=== PATIENT | female | born 1980 | race Caucasian/White ===

== ENCOUNTER 2018-05-15 11:53 | Emergency (ER) | payer MEDICAID, SELFPAY ==
[2018-05-15 12:14] VITALS: BP 124/76; PULSE 78; RESP 16; TEMP 36.7; O2SAT 100
--- NOTE | 2018-05-15 12:25 | W.ED.GENAD ---
Discharge Plan Disposition Patient Disposition: HOME Condition: Stable Discharge Details Chief Complaint: RespSymp Clinical Impression: Upper respiratory infection, viral Reason For Visit: cough sorethroat Primary Care Provider: Norman Davidson ED Provider: Ahmet Loyola Home Meds and New Rx's Prescriptions: New Robitussin Cough-Chest Giancarlo DM 5-100 mg/5 mL liquid 10 ml PO Q6H PRN (Reason: cough) Qty: 118 RF: 0 benzonatate [Tessalon Perles] 100 mg capsule 100 mg PO TID PRN (Reason: cough) Qty: 20 RF: 0 Continued ibuprofen 600 MG tablet 600 mg PO QID PRN (Reason: Pain) Qty: 20 RF: 0 Discharge Instructions Instructions: Upper Respiratory Infection (ED) Additional Instructions: Albuterol inhaler, as needed during times of illness for cough or wheezing. If using more than every 4 hours please seek reevaluation. Continue efforts to decrease tobacco use. May use Robitussin-DM for decongestion and to aid with coughing at bedtime. May use Tessalon during the daytime for cough. Follow-up with regular doctor if not improving in 3-5 days time. 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 She presents with cough and congestion over 2 days time. She has normal vital signs, is well-appearing, oxygenating normally on room air. Differential diagnosis includes upper respiratory illness due to viral syndrome, must exclude influenza. Patient underwent rapid influenza screen which was negative. Consistent with viral URI, will treat with an inhaler for mild bronchospasm and paroxysms of cough, decongestant, and antitussive. She understands homecare as well as follow-up and return precautions. 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 HPI General Mode of arrival: ambulatory. Date/Time Provider Initiated Documentation: 05/15/18 12:09. Limitations to Documentation: no limitations. Information obtained by: patient. History of Present Illness 37 year old F presents to the emergency department with the chief complaint of Cough, fever, congestion. 2 days., described as moderate, Quality is described as aching, and is localized to the chest. Patient reports no radiation. Patient started experiencing this day(s) and it has been constant. No relieving factors improve symptom(s), No exacerbating factors reported . Patient notes fever/chills and malaise. Patient did receive the following treatments prior to arrival, none Related Data Home Medications Medication Instructions Recorded Confirmed ibuprofen 600 mg PO QID PRN #20 tablet 02/28/17/ benzonatate [Tessalon Perles] 100 mg PO TID PRN #20 cap 05/15/18 dextromethorphan-guaifenesin 10 ml PO Q6H PRN #118 ml 05/15/18 [Robitussin Cough-Chest Giancarlo DM] Previous Rx's Medication Instructions Recorded ibuprofen 600 mg PO QID PRN #20 tablet 02/28/17 benzonatate [Tessalon Perles] 100 mg PO TID PRN #20 cap 05/15/18 dextromethorphan-guaifenesin 10 ml PO Q6H PRN #118 ml 05/15/18 [Robitussin Cough-Chest Giancarlo DM] Allergies Allergy/AdvReac Type Severity Reaction Status Date / Time codeine Allergy Intermediate Facial Unverified 05/15/18 12:17 swelling General Stated Complaint: RespSymp ИРИНА: 4 Review of Systems Review of Systems 8 systems reviewed and otherwise neg PFSH Social History Smoking and Tabacco status: Current every day Exam Narrative Exam Narrative: GEN: awake, alert, oriented 3. Pleasant, well groomed, interactive. HEAD: Normocephalic, atraumatic ENT: Mucous membranes moist, oropharynx unremarkable, External ear exam unremarkable EYES: PERRL, EOMI NECK: Full ROM, no JACK, no menigismus CHEST/RESP: Nontender, clear to auscultation bilateral, cough noted CARDIOVASCULAR: RRR, no murmur, rub chito. 2+ Rad pulse bilateral ABDOMEN: Soft, nontender, no mass. +Bowel sounds EXT: Full ROM, no edema, no rash Neuro: Grossly normal neurologic exam, conversant, interactive. Psych: Speech fluent, thoughts congruent, affect normal Course Vital Signs Temperature 36.7 C 05/15/18 12:14 Pulse 78 05/15/18 12:14 Respiratory Rate 16 05/15/18 12:14 Blood Pressure 124/76 05/15/18 12:14 Pulse Oximetry 100 05/15/18 12:14 Temperature 36.7 C 05/15/18 12:14 Pulse 78 05/15/18 12:14 Respiratory Rate 16 05/15/18 12:14 Respiratory Effort 05/15/18 12:17 Blood Pressure 124/76 05/15/18 12:14 Pulse Oximetry 100 05/15/18 12:14 Oxygen Delivery Method Room Air 05/15/18 12:14 Oxygen Flow Rate 0 05/15/18 12:14
--- NOTE | 2018-05-15 12:28 | ED.GENADUL_ITS ---
Discharge Plan Disposition Patient Disposition: HOME Condition: Stable Discharge Details Chief Complaint: RespSymp Clinical Impression: Upper respiratory infection, viral Reason For Visit: cough sorethroat Primary Care Provider: Norman Davidson ED Provider: Ahmet Loyola Home Meds and New Rx's Prescriptions: New Robitussin Cough-Chest Giancarlo DM 5-100 mg/5 mL liquid 10 ml PO Q6H PRN (Reason: cough) Qty: 118 RF: 0 benzonatate [Tessalon Perles] 100 mg capsule 100 mg PO TID PRN (Reason: cough) Qty: 20 RF: 0 Continued ibuprofen 600 MG tablet 600 mg PO QID PRN (Reason: Pain) Qty: 20 RF: 0 Discharge Instructions Instructions: Upper Respiratory Infection (ED) Additional Instructions: Albuterol inhaler, as needed during times of illness for cough or wheezing. If using more than every 4 hours please seek reevaluation. Continue efforts to decrease tobacco use. May use Robitussin-DM for decongestion and to aid with coughing at bedtime. May use Tessalon during the daytime for cough. Follow-up with regular doctor if not improving in 3-5 days time. 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 She presents with cough and congestion over 2 days time. She has normal vital signs, is well- appearing, oxygenating normally on room air. Differential diagnosis includes upper respiratory illness due to viral syndrome, must exclude influenza. Patient underwent rapid influenza screen which was negative. Consistent with viral URI, will treat with an inhaler for mild bronchospasm and paroxysms of cough, decongestant, and antitussive. She understands homecare as well as follow-up and return precautions. 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 HPI General Mode of arrival: ambulatory . Date/Time Provider Initiated Documentation: 05/15/18 12:09 . Limitations to Documentation: no limitations . Information obtained by: patient . History of Present Illness 37 year old F presents to the emergency department with the chief complaint of Cough, fever, congestion. 2 days., described as moderate, Quality is described as aching, and is localized to the chest. Patient reports no radiation. Patient started experiencing this day(s) and it has been constant. No relieving factors improve symptom(s), No exacerbating factors reported . Patient notes fever/chills and malaise. Patient did receive the following treatments prior to arrival, none Related Data Home Medications Medication Instructions Recorded Confirmed ibuprofen 600 mg PO QID PRN #20 tablet 02/28/17/ benzonatate [Tessalon Perles] 100 mg PO TID PRN #20 cap 05/15/18 dextromethorphan-guaifenesin 10 ml PO Q6H PRN #118 ml 05/15/18 [Robitussin Cough-Chest Giancarlo DM] Previous Rx's Medication Instructions Recorded ibuprofen 600 mg PO QID PRN #20 tablet 02/28/17 benzonatate [Tessalon Perles] 100 mg PO TID PRN #20 cap 05/15/18 dextromethorphan-guaifenesin 10 ml PO Q6H PRN #118 ml 05/15/18 [Robitussin Cough-Chest Giancarlo DM] Allergies Allergy/AdvReac Type Severity Reaction Status Date / Time codeine Allergy Intermediate Facial Unverified 05/15/18 12:17 swelling General Stated Complaint: RespSymp ИРИНА: 4 Review of Systems Review of Systems 8 systems reviewed and otherwise neg PFSH Social History Smoking and Tabacco status: Current every day Exam Narrative Exam Narrative: GEN: awake, alert, oriented 3. Pleasant, well groomed, interact jakub. HEAD: Normocephalic, atraumatic ENT: Mucous membranes moist, oropharynx unremarkable, External ear exam unremarkable EYES: PERRL, EOMI NECK: Full ROM, no JACK, no menigismus CHEST/RESP: Nontender, clear to auscultation bilateral, cough noted CARDIOVASCULAR: RRR, no murmur, rub chito. 2+ Rad pulse bilateral ABDOMEN: Soft, nontender, no mass. +Bowel sounds EXT: Full ROM, no edema, no rash Neuro: Grossly normal neurologic exam, conversant, interactive. Psych: Speech fluent, thoughts congruent, affect normal Course Vital Signs Temperature 36.7 C 05/15/18 12:14 Pulse 78 05/15/18 12:14 Respiratory Rate 16 05/15/18 12:14 Blood Pressure 124/76 05/15/18 12:14 Pulse Oximetry 100 05/15/18 12:14 Temperature 36.7 C 05/15/18 12:14 Pulse 78 05/15/18 12:14 Respiratory Rate 16 05/15/18 12:14 Respiratory Effort 05/15/18 12:17 Blood Pressure 124/76 05/15/18 12:14 Pulse Oximetry 100 05/15/18 12:14 Oxygen Delivery Method Room Air 05/15/18 12:14 Oxygen Flow Rate 0 05/15/18 12:14
[2018-05-15] MEDS: Albuterol HFA 8 GM 60 PUFF INH IH (13:15)
== END 2018-05-15 13:12 | disposition home or self-care (01) ==
PROVIDERS: Emergency Provider Emergency Medicine; PCP Internal Medicine
DX: J06.9 Acute upper respiratory infection, unspecified (principal); F17.210 Nicotine dependence, cigarettes, uncomplicated
CPT/HCPCS: 87449; 99283

== ENCOUNTER 2019-11-07 09:54 | Outpatient (CLI) | payer MEDICAID, SELFPAY ==
[2019-11-08 23:48] LABS: COVID-19 RT-PCR Result NEGATIVE (Negative)
== END 2019-11-07 10:14 ==
PROVIDERS: PCP Internal Medicine; Visit Provider Family Medicine
DX: R50.9 Fever, unspecified (principal); R42 Dizziness and giddiness; R11.2 Nausea with vomiting, unspecified
CPT/HCPCS: U0003

== ENCOUNTER 2021-02-17 18:48 | Outpatient (REF) | payer MEDICAID, SELFPAY ==
[2021-02-18 20:58] LABS: COVID-19 RT-PCR UVMMC Result Negative (Negative)
== END 2021-02-17 18:49 | disposition home or self-care (01) ==
LOC: LBN 18:48
PROVIDERS: PCP Internal Medicine; Visit Provider Internal Medicine
DX: Z20.822 Contact with and (suspected) exposure to COVID-19 (principal)
CPT/HCPCS: U0003

== ENCOUNTER 2021-03-14 15:15 | Outpatient (REF) | payer MEDICAID, SELFPAY ==
--- NOTE | 2021-03-14 15:15 | PAPFT_PTH ---
PATIENT: Kaylee Napier LOC: [facility] U#:[id number] AGE/SX: 40/F ROOM: RE03/14/[address]: PLACIDO Donis : 1980 BED: DIS: 03/14/2021 SPEC #: [id number] RECD: 03/14/21 16:48 STATUS: KARAN REIván #: [id number] JENNIFER: 03/14/21 15:[address]: Estela Tobias DEPT: [facility] Cytology RECD BY: Aleah Ryder ENTERED: 03/14/21 16:48 SP TYPE: PAPFT OTHR DR: Norman Davidosn Tissues: 1 - CX/ENDOCX FOR PAP SMEARS Procedures: PAP THIN PREP/UVM Screening HPV DNA PROBE Comments: [id number]
[2021-03-17 15:27] LABS: Chlamydia Result Negative (Negative); GC Result Negative (Negative)
== END 2021-03-14 15:16 | disposition home or self-care (01) ==
LOC: LBN 15:15
PROVIDERS: PCP Internal Medicine; Visit Provider Nurse Practitioner Family
DX: Z11.3 Encounter for screening for infections with a predominantly sexual mode of transmission (principal); Z12.4 Encounter for screening for malignant neoplasm of cervix; Z11.51 Encounter for screening for human papillomavirus (HPV); R87.810 Cervical high risk human papillomavirus (HPV) DNA test positive
CPT/HCPCS: 87491; 87591; 88142; 87624

== ENCOUNTER 2021-08-16 19:52 | Emergency (ER) | payer MEDICAID, SELFPAY ==
--- NOTE | 2021-08-16 20:00 | RT.EKG_ITS ---
APPROVED REPORT Exam: Resting ECG Reason for Exam: [facility] Patient Location: E HR:60 bpm ECG Measurements Heart Rate 60 AXIS DC 153 P 12 QRSd 88 QRS 57 QT 409 T 44 QTc 409 Conclusion Sinus rhythm...normal P axis, V-rate 60- 99
[2021-08-16 20:01] VITALS: PULSE 67; RESP 14; TEMP 36.2
[2021-08-16] MEDS: Normal Saline 1,000 ML 1000 ML IV (20:14)
--- NOTE | 2021-08-16 20:15 | DI.CT_ITS ---
Exam(s) CT ABDOMEN PELVIS WO EXAM: CT ABDOMEN PELVIS WO CLINICAL HISTORY: upper abdominal pain. TECHNIQUE: Imaging Protocol: Axial computed tomography images with coronal and sagittal reformatted images were created and reviewed CONTRAST MATERIAL: Intravenous: none Oral: None COMPARISON: No exams were available for comparison FINDINGS: VISUALIZED LUNG BASES: Mild increased markings noted in the posterior basal segment of the right lowe r lobe, not associated with pleural effusion. Lesser amount of the same in the posterior basal segme nt of the left lower lobe, also not associated with pleural effusion but there is a small 4 millimete r nodule in the left lower lobe noted.. ABDOMEN: There is no ascites. LIVER: There are no obvious focal hepatic lesions evident of this noninfused study. GALLBLADDER/BILIARY: The gallbladder is surgically absent. CBD is not dilated. PANCREAS: No evidence of pancreatic mass nor dilatation of the pancreatic duct. SPLEEN: Spleen is not enlarged. No obvious intrasplenic lesions. ADRENALS: There are no significant adrenal masses. KIDNEYS:No cysts evident. No solid renal masses. No calculi nor hydronephrosis. . ABDOMINAL AORTA: Abdominal aorta is not enlarged. There is a retroaortic left renal vein incidentall y noted. LYMPH NODES: There is no retroperitoneal nor paraaortic adenopathy. ABDOMINAL WALL: No evidence of significant anterior abdominal wall nor inguinal hernia. GI: Fluid-filled small bowel and colon loops. Small bowel diameter upper normal. PELVIS: LYMPH NODES: There is no intrapelvic nor inguinal adenopathy. GI: No evidence of appendicitis.No evidence of sigmoid diverticulitis. URINARY BLADDER: No calculi nor obvious masses evident REPRODUCTIVE: Uterus is smaller surgically absent. There are no abnormal adnexal masses nor free flu id in the pelvis. OSSEOUS: No significant osseous lesions. Advanced chronic disc space narrowing noted at L5-S1 level with Modic-type sub endplate marrow change s. IMPRESSION: 1. There is fluid seen throughout small bowel loops which are upper normal diameters and there is als o moderate fluid distension of the proximal 2/3 of the colon. 2. No evidence of appendicitis nor diverticulitis. 3. Lung base findings as described above including a 4-5 millimeter nodule in the left lower lobe. S ix-month follow-up CT recommended RADIATION DOSE DELIVERED: 1,034.99mGy.cm Total DLP DATA REPOSITORY: All CT scans at this facility are submitted to the National Radiology Data Registry (NRDR) Dose Index Registry (DIR) with the [employer] (ACR). RADIATION OPTIMIZATION: All CT scans at this facility use at least one of these dose optimization te chniques: automated exposure control; mA and/or kV adjustment per patient size (includes targeted exa ms where dose is matched to clinical indication); or iterative reconstruction.
[2021-08-16] MEDS: Ketorolac 15 MG/ML VIAL IVP (20:18)
[2021-08-16] MEDS: Ondansetron 4 MG/2 ML VIAL IVP (20:18)
--- NOTE | 2021-08-16 20:20 | ED.GENADUL_ITS ---
Discharge Plan Disposition Patient Disposition: HOME Condition: Stable Discharge Details Clinical Impression: Abdominal pain Primary Care Provider: Norman Davidson ED Provider: Sukh Flores Home Meds and New Rx's Prescriptions: New ondansetron 4 mg tablet,disintegrating 4 mg PO Q8H PRN (Reason: nausea and vomiting) Qty: 30 0RF ondansetron 4 mg tablet,disintegrating 4 mg PO Q8H PRN (Reason: nausea and vomiting) Qty: 30 0RF Continued ibuprofen 600 MG tablet 600 mg PO QID PRN (Reason: Pain) Qty: 20 0RF Discharge Instructions Instructions: Gastroenteritis (ED) Additional Instructions: your cat scan showed evidence of a gatroenteritis so you will likely develop diarrhea in the next few days follow up with your primary care provider in 1-2 weeks if symptoms continue if you feel more ill, have severe worsening pain or persistent vomit return to the emergency department Medical Decision Making 41 yo female who denies chronic medical problems, has had partial hysterectomy and cholecystectomy in the past comes in with chief complaint of abdominal pain starting an hour or so ago suddenly after feeling well most of the day and also has chills and n/v. Denies chest pain, fevers, dyspnea, dysuria. Denies having this pain in the past. Denies alcohol or drug use. ARrives caox4 and appears in pain. She localizes the pain to the mid to upper abdomen and is tender in these locations even with light touch. Given her history concern for sbo among other pathologies. Will obtain labs including cbc, cmp, lipase, and given national iv contrast shortage start with noncontrast ct to evaluate for sbo. Patient's labs show wbc of 19 otherwise no acute findings. CT shows fluid throughout the samll bowel no sbo but do not likely impending diarrhea. she is stable and feels better and has no abdominal tenderness now. Discussed with pt and she is comfortable with d/c and advised she will likely develop diarrhea. Suspect gastroenteritis as cause for her symptoms. Return precautions given Differential Diagnosis Differential Diagnosis: sbo, pneumoperitoneum, pancreatitis Imaging Data Radiologic Study: Attestation: I personally reviewed and interpreted this imaging study as follows: Imaging: CT Scan Radiologist's impression: IMPRESSION: 1. Fluid throughout the small bowel. Moderate fluid-filled distention of the cecum, ascending colon, and transverse colon suggesting impending diarrhea, cause not demonstrated. 2. Mild-moderate atrophy of the pancreas. Clinical correlation is recommended to exclude pancreatic insufficiency. 3. 5 mm nodular pulmonary density in the left lower lobe. Lab Data Lab results reviewed: Yes I reviewed the patient's lab results. ECG Data Attestation: I personally reviewed and interpreted this ECG (s) as follows: Prior ECG tracings: not available for review Interpretation: sinus rhythm, rate of 60, no acute st t wave ischemic findings HPI General Mode of arrival: wheelchair . Date/Time Provider Initiated Documentation: 08/16/21 19:53 . Limitations to Documentation: no limitations . Information obtained by: patient . History of Present Illness 41 year old F presents to the emergency department with the chief complaint of abdominal pain, described as severe, with intensity rated at 10. Quality is described as sharp, and is localized to the abdomen. Patient reports no radiation. Patient started experiencing this hour(s) (1) and it has been constant. No relieving factors improve symptom(s), No exacerbating factors reported . Patient did receive the following treatments prior to arrival, none Related Data Home Medications Medication Instructions Recorded Confirmed ibuprofen 600 mg tablet 600 mg PO QID PRN Pain #20 tabs 02/28/17 03/14/21 ondansetron 4 mg disintegrating 4 mg PO Q8H PRN nausea and 08/16/21 tablet vomiting #30 tabs ondansetron 4 mg disintegrating 4 mg PO Q8H PRN nausea and 08/16/21 tablet vomiting #30 tabs Previous Rx's Medication Instructions Recorded ibuprofen 600 mg tablet 600 mg PO QID PRN Pain #20 tabs 02/28/17 ondansetron 4 mg disintegrating 4 mg PO Q8H PRN nausea and 08/16/21 tablet vomiting #30 tabs ondansetron 4 mg disintegrating 4 mg PO Q8H PRN nausea and 08/16/21 tablet vomiting #30 tabs Allergies Allergy/AdvReac Type Severity Reaction Status Date / Time codeine Allergy Intermediate Facial Unverified 08/16/21 20:09 swelling General Stated Complaint: Abd Prob ИРИНА: 2 Review of Systems All systems reviewed & are unremarkable except as noted in HPI and below Constitutional Constitutional: Denies fever(s) Cardiovascular Cardiovascular: Denies chest pain and Denies dyspnea Respiratory Respiratory: Denies cough and Denies dyspnea Genitourinary Genitourinary: Denies dysuria PFSH All Active Problems (Updated 08/16/21 @ 22:35 by Sukh Flores MD) Abdominal pain (Acute) Surgical History (Updated 03/14/21 @ 15:11 by Estela Tobias NP) History of hysterectomy, supracervical 2014 S/P cholecystectomy S/P tubal ligation Family History Father COPD (chronic obstructive pulmonary disease) Mother Bone cancer Social History Smoking/Tobacco Use Status: Current every day Tobacco Type: cigarettes Smoking risk assessment performed?: Yes Alcohol Intake: never Drug use: Never Substance use type: does not use Do you feel safe at home: Yes Do you feel safe in your relationship?: Yes Exam Const General: other (appears in pain) Orientation: alert HENMT Head: normal to inspection Ears: external ears normal General nose exam: external nose normal Mouth: moist mucous membranes Eyes General: appearance normal, both eyes and all related structures Neck Neck: normal visual inspection Chest Chest: no tenderness Resp Effort & Inspection: normal respiratory effort and able to speak in complete sentences Auscultation: clear to auscultation bilaterally Cardio Rate: regular rate GI Palpation: soft and tender Skin General skin exam: no rashes or lesions noted Neuro General: patient alert and patient oriented x3 Extrem General: normal to inspection Psych Mental Status: mental status grossly normal Course Vital Signs Vital signs: Vital Signs Temperature 36.2 C L 08/16/21 20:01 Pulse 67 08/16/21 20:01 Respiratory Rate 14 08/16/21 20:01 Temperature 36.2 C L 08/16/21 20:01 Temperature Source Temporal Artery Scan 08/16/21 20:01 Pulse 67 08/16/21 20:01 Respiratory Rate 14 08/16/21 20:01 Respiratory Effort Non-Labored 08/16/21 20:06 Blood Pressure Position Sitting 08/16/21 20:01 Oxygen Delivery Method Room Air 08/16/21 20:01 Oxygen Flow Rate 0 08/16/21 20:01 Pain Level 10 08/16/21 20:01 Comment 08/16/21 20:01
[2021-08-16 20:39] LABS: BE (Venous) 1 mmol/L (-2-3); HCO3 (Venous) 24 mmol/L (23-28); O2 Sat (Venous) 85 %; TCO2 (Venous) 21 mmol/L (24-29); pCO2 (Venous) 31 mmHg (41-51); pH (Venous) 7.51 (7.31-7.41); pO2 (Venous) 42 mmHg
[2021-08-16 20:42] LABS: Source Nasal/Nares
[2021-08-16 20:46] LABS: Abs Immature Grans 0.07 10^3/uL (0.0-0.06); Absolute Eosinophil Count 0.18 10^3/uL (0.0-0.7); Absolute Monocyte Count 1.21 10^3/uL (0.1-0.8); Basophils % 0.5; Eosinophils % 0.9; HCT 47.3 % (36.0-46.0); HGB 16.3 g/dL (11.2-15.7); Immature Grans % 0.4; Lymphocytes % 18.4; MCH 30.9 pg (27.0-33.0); MCHC 34.5 % (32.0-36.0); MCV 90 fL (80-95); MPV 9.1 fL (8.0-11.0); Monocytes % 6.2; Neutrophils % 73.6; Platelet Count 350 10^3/uL (130-400); RBC 5.28 10^6/uL (3.93-5.22); RDW 12.4 % (11.7-14.6); RDW-SD 41.1 fL; WBC 19.48 10^3/uL (4.4-10.8)
[2021-08-16 20:52] LABS: Absolute Lymphocyte Count 3.58 10^3/uL (1.2-3.4); Absolute Neutrophil Count 14.34 10^3/uL (1.2-6.7)
[2021-08-16] MEDS: HYDROmorphone 2 MG/ML VIAL 1 MG IVP (20:52)
[2021-08-16 21:01] LABS: ALT 22 U/L (14-59); AST 13 U/L (15-37); Albumin 4.6 g/dL (3.4-5.0); Alkaline Phosphatase 58 U/L (46-116); Anion Gap 14.4 mmol/L (3-11); BUN 16 mg/dL (7-18); Bilirubin, Direct 0.2 mg/dL (0.0-0.2); Bilirubin, Total 0.9 mg/dL (0.2-1.0); CO2 23.6 mmol/L (21.0-32.0); CREATININE 0.9 mg/dL (0.55-1.02); Calcium 9.6 mg/dL (8.5-10.1); Chloride 102 mmol/L (98-107); Glucose 124 mg/dL (74-106); Lipase 81 U/L (73-393); Magnesium 2.5 mg/dL (1.8-2.4); Potassium 3.4 mmol/L (3.5-5.1); Sodium 140 mmol/L (136-145); Total Protein 8.4 g/dL (6.4-8.2); Troponin I < 50 ng/L (<or=60)
[2021-08-16 21:12] LABS: ETHANOL BLOOD < 3.0 mg/dL (<10); TSH (W/Ref FT4) 1.95 uIU/mL (0.36-3.74)
--- NOTE | 2021-08-16 21:38 | DI.VRAD_ITS ---
PROCEDURE INFORMATION: Exam: CT Abdomen And Pelvis Without Contrast Exam date and time: 08/16/2021 8:56 PM Age: 41 years old Clinical indication: Abdominal pain; Other: Upper TECHNIQUE: Imaging protocol: Computed tomography of the abdomen and pelvis without contrast. Radiation optimization: All CT scans at this facility use at least one of these dose optimization techniques: automated exposure control; mA and/or kV adjustment per patient size (includes targeted exams where dose is matched to clinical indication); or iterative reconstruction. COMPARISON: CR LEFT HIP COMPLETE AP PELVIS 02/28/2017 2:43 PM FINDINGS: Lungs: 5 mm nodular pulmonary density at the left base, image 10 of series 2. Liver: Grossly unremarkable unenhanced liver. Gallbladder and bile ducts: Prior cholecystectomy. No biliary dilatation. Pancreas: Mild-moderate atrophy of the pancreas, unusual in a patient of this age. Spleen: Grossly unremarkable unenhanced spleen. Adrenal glands: Normal appearing adrenal glands. Kidneys and ureters: Grossly unremarkable unenhanced kidneys. No radiopaque renal calculi or hydronephrosis. Ureters partially obscured. No suspicious calcifications along the expected ureteral courses. Stomach and bowel: No oral contrast. Stomach partially decompressed. Fluid throughout the small bowel. No convincing evidence of small bowel obstruction. Moderate fluid-filled distention of the cecum, ascending colon, and transverse colon suggesting impending diarrhea. Normal appearing fecal material throughout the descending colon and proximal sigmoid colon. Distal sigmoid colon and rectum completely evacuated. No evidence of diverticulitis or colitis. Appendix: Normal appendix, best demonstrated by the coronal series. Intraperitoneal space: No gross ascites or free air. Vasculature: Normal caliber abdominal aorta. Retroaortic left renal vein, anatomic variant. Lymph nodes: No pathologically enlarged mesenteric, retroperitoneal, or pelvic sidewall lymph nodes. Urinary bladder: Urinary bladder collapsed and not well evaluated but grossly unremarkable, as seen. Reproductive: Prior hysterectomy. Normal-appearing left ovary with an adjacent surgical clip. Normal-appearing right ovary along the right pelvic sidewall. Bones/joints: No acute fracture seen among the bones of the abdomen or pelvis. Soft tissues: No significant ventral or inguinal hernia. IMPRESSION: 1. Fluid throughout the small bowel. Moderate fluid-filled distention of the cecum, ascending colon, and transverse colon suggesting impending diarrhea, cause not demonstrated. 2. Mild-moderate atrophy of the pancreas. Clinical correlation is recommended to exclude pancreatic insufficiency. 3. 5 mm nodular pulmonary density in the left lower lobe. Dictated and Authenticated by: Guille Brar MD. Ordering:HIRAL Luz MD
[2021-08-16 21:43] LABS: COVID-19 PCR Negative (Negative)
[2021-08-16 22:49] VITALS: BP 118/75; PULSE 63; RESP 14; O2SAT 96
== END 2021-08-16 22:51 | disposition home or self-care (01) ==
PROVIDERS: Emergency Provider Emergency Medicine; PCP Internal Medicine
DX: R10.9 Unspecified abdominal pain (principal); R11.2 Nausea with vomiting, unspecified; R41.82 Altered mental status, unspecified
CPT/HCPCS: 36415; 36416; 80053; 82805; 82962; 83690; 87635; 93005; 96361; 96374; 96375; 99284; 74176; 80320; 82248; 83735; 84443; 84484; 85025; 93010; J1885; J2405

== ENCOUNTER 2023-01-25 18:14 | Emergency (ER) | payer MEDICAID, SELFPAY ==
[2023-01-25 18:17] VITALS: BP 142/99; PULSE 47; RESP 16; TEMP 36.9; O2SAT 99
--- NOTE | 2023-01-25 18:30 | DI.CT_ITS ---
Exam(s) CT ABDOMEN PELVIS W EXAM: CT ABDOMEN PELVIS W CLINICAL HISTORY: epigastric abdominal pain. TECHNIQUE: Imaging Protocol: Axial computed tomography images with coronal and sagittal reformatted images were created and reviewed CONTRAST MATERIAL: Intravenous: Omnipaque 350 Contrast volume:100 ml Oral: / no COMPARISON: CT CT ABDOMEN PELVIS WO from 08/16/2021 FINDINGS: ABDOMEN and PELVIS: Lung Bases: Normal where visualized. Liver: Normal density. No measurable mass. Gallbladder and biliary tract: Status post cholecystectomy no radiodense calculus or dilation. Pancreas: Normal density. No abnormal calcifications or inflammatory process. No evidence of mass. Spleen: Normal. Kidneys: Normal size, contour and axis. No radiodense stones. No obstructive uropathy. No suspicious masses seen. Adrenal glands: No masses seen. Vasculature: Abdominal aorta non-dilated. Retroaortic left renal vein. Soft tissues: Unremarkable. Bladder: Nearly empty. No gross wall thickening. No calculi.No visible focal mass. Bowel: No obstruction. No bowel wall thickening. Appendix normal.Normal quantity of stool. Peritoneal cavity: No ascites. No focal collection or mesenteric inflammatory response. Bones: Severe degenerative changes L5-S1. Reproductive organs: Status post hysterectomy. Tubal ligation clips. Lymph nodes: Unremarkable. IMPRESSION:: No acute abnormality. RADIATION DOSE DELIVERED: Total DLP DATA REPOSITORY: All CT scans at this facility are submitted to the National Radiology Data Registry (NRDR) Dose Index Registry (DIR) with the [employer] (ACR). RADIATION OPTIMIZATION: All CT scans at this facility use at least one of these dose optimization te chniques: automated exposure control; mA and/or kV adjustment per patient size (includes targeted exa ms where dose is matched to clinical indication); or iterative reconstruction.
--- NOTE | 2023-01-25 18:32 | ED.GENADUL_ITS ---
Discharge Plan Disposition Patient Disposition: Home Discharge Details Clinical Impression: Abdominal pain Primary Care Provider: Norman Davidson ED Provider: Juan Flores Home Meds and New Rx's Prescriptions: Continued ondansetron 4 mg tablet,disintegrating 4 mg PO Q8H PRN (Reason: nausea and vomiting) Qty: 30 0RF ondansetron 4 mg tablet,disintegrating 4 mg PO Q8H PRN (Reason: nausea and vomiting) Qty: 30 0RF ibuprofen 600 MG tablet 600 mg PO QID PRN (Reason: Pain) Qty: 20 0RF Discharge Instructions Instructions: Abdominal Pain (ED) Additional Instructions: You were seen in the emergency department for abdominal pain. We performed labs and a CT scan of the abdomen and pelvis that were unremarkable. The exact cause of your symptoms is not known. Could represent GERD or gastritis and you should start taking Pepcid 20 mg daily to see if this helps with your symptoms. You can also take ccys-xoy-licpiac Maalox or Pepto-Bismol for the next few days to see if this helps with your symptoms to see if this is related to GERD or gastritis. Please return to the emergency department if your symptoms do not improve or if they get worse. Follow-up with your primary care doctor. Referrals: Norman Davidson [Primary Care Provider] - 1 week Medical Decision Making 42-year-old female presents with abdominal pain. Differential is broad. Could represent intra-abdominal abscess or obstruction and will get CT abdomen pelvis to further evaluate. Could represent hepatitis, pancreatitis, or other biliary disease and will check biliary labs to further evaluate. We will get broad labs look for electrolyte or metabolic cause of the patient's symptoms. Could represent GERD or gastritis and will give some nausea and pain medications to treat this. Certainly could represent cannabis hyperemesis syndrome but this would be a diagnosis of exclusion. Will await initial testing and response to treatment and reevaluate. 905pm reevaluation Labs and CT Abdomen pelvis unremarkable. Only minimal improvement in her symptoms had given multiple rounds of nausea and pain medications. Give medications to treat COVID gastritis additionally. I offered to admit the patient for observation or let her go home and try to sleep. She says that she would like to go home and try and rest to see if this gets better which I think is reasonable. Will discharge with strict return precautions. Medical Records Medical records reviewed: Yes I reviewed the patient's medical records. Imaging Data Radiologic Study: Attestation: I personally reviewed and interpreted this imaging study as follows: Imaging: CT Scan (ct abd and pelvis) Radiologist's impression: Unremarkable Lab Data Lab results reviewed: Yes I reviewed the patient's lab results. Lab results narrative: Labs unremarkable HPI General Mode of arrival: ambulatory . Date/Time Provider Initiated Documentation: 01/25/23 18:26 . Limitations to Documentation: no limitations . Information obtained by: patient and family . HPI Narrative: 42-year-old female previous cholecystectomy and hysterectomy is now presenting with abdominal pain. Started acutely 2 hours ago. In the upper abdominal region but says it is all throughout the abdomen as well. Nothing making it better or worse. No diarrhea or constipation. No black or bloody stools. No urinary symptoms. No vaginal bleeding or discharge. Nausea and vomiting. Chills but no fevers. She smokes cigarettes and marijuana daily. Denies alcohol use. Denies any recent travel or surgeries. Related Data Home Medications Medication Instructions Recorded Confirmed ibuprofen 600 mg tablet 600 mg PO QID PRN Pain #20 tabs 02/28/17 03/14/21 ondansetron 4 mg disintegrating 4 mg PO Q8H PRN nausea and 08/16/21 tablet vomiting #30 tabs ondansetron 4 mg disintegrating 4 mg PO Q8H PRN nausea and 08/16/21 tablet vomiting #30 tabs Previous Rx's Medication Instructions Recorded ibuprofen 600 mg tablet 600 mg PO QID PRN Pain #20 tabs 02/28/17 ondansetron 4 mg disintegrating 4 mg PO Q8H PRN nausea and 08/16/21 tablet vomiting #30 tabs ondansetron 4 mg disintegrating 4 mg PO Q8H PRN nausea and 08/16/21 tablet vomiting #30 tabs Allergies Allergy/AdvReac Type Severity Reaction Status Date / Time codeine Allergy Intermediate Facial Unverified 08/16/21 20:09 swelling General Stated Complaint: Abd Prob ИРИНА: 3 Review of Systems Constitutional Constitutional: Reports chills, Denies fever(s) and Denies headache(s) Eyes Eyes: Denies change in vision ENT Ears, Nose, Mouth, and Throat: Denies headache(s) and Denies odynophagia Cardiovascular Cardiovascular: Denies chest pain and Denies dyspnea Respiratory Respiratory: Denies dyspnea Gastrointestinal Gastrointestinal: Reports abdominal pain, Denies melena, Denies hematochezia, Denies change in bowel habits, Denies diarrhea, Denies loose stools, Reports nausea, Denies odynophagia, Reports vomiting and Denies hematemesis Genitourinary Genitourinary: Denies dysuria Musculoskeletal Musculoskeletal: Denies myalgias Integumentary/Breasts Skin/Breast: Denies changing lesions Neurologic Neurologic: Denies behavioral changes and Denies headache(s) Psychiatric Psychiatric: Denies behavioral changes Endocrine Endocrine: Denies heat intolerance Hematologic/Lymphatic Hematologic/Lymphatic: Denies lymphadenopathy PFSH All Active Problems (Updated 01/25/23 @ 21:08 by Juan Flores MD) Abdominal pain (Acute) Surgical History S/P cholecystectomy History of hysterectomy, supracervical 2014 S/P tubal ligation Family History Father COPD (chronic obstructive pulmonary disease) Mother Bone cancer Social History Smoking/Tobacco Use Status: Current every day Tobacco Type: cigarettes Smoking risk assessment performed?: Yes Alcohol Intake: never Drug use: Socially Substance use type: marijuana Do you feel safe at home: Yes Do you feel safe in your relationship?: Yes Exam Const General: cooperative Nutritional Appearance: average body habitus Orientation: alert, awake and oriented x3 HENMT Head: normal to inspection Ears: external ears normal Mouth: moist mucous membranes Eyes Pupils: PERRL EOM: EOM intact bilaterally and No nystagmus Neck Neck: full ROM and no tracheal deviation Chest Chest: normal inspection of the chest Resp Auscultation: clear to auscultation bilaterally Cardio Rate: regular rate Rhythm: regular rhythm GI Inspection: normal to inspection Palpation: soft and not rigid Other: Tenderness throughout the abdomen with some guarding but no rigidity or rebound. No CVA tenderness. Otherwise unremarkable abdominal exam. Back/Spine/Pelvis Back: No no CVA tenderness Thoracic/Lumbar Spine: thoracic and lumbar spine normal to inspection Skin General skin exam: no rashes or lesions noted Neuro General: patient alert, patient awake and patient oriented x3 Cranial Nerves: CN's II-XI intact bilaterally, PERRL and no nystagmus Cognition: normal cognition Motor: muscle tone normal throughout and strength 5/5 throughout Sensory Exam: no sensory deficits noted Extrem General: normal to inspection Course Vital Signs Vital signs: Vital Signs Temperature 36.9 C 01/25/23 18:17 Pulse 47 L 01/25/23 18:17 Respiratory Rate 16 01/25/23 18:17 Blood Pressure 142/99 H 01/25/23 18:17 Pulse Oximetry 99 01/25/23 18:17 Temperature 36.9 C 01/25/23 18:17 Temperature Source Temporal Artery Scan 01/25/23 18:17 Pulse 47 L 01/25/23 18:17 Respiratory Rate 16 01/25/23 18:17 Blood Pressure 142/99 H 01/25/23 18:17 Blood Pressure Position Sitting 01/25/23 18:17 Pulse Oximetry 99 01/25/23 18:17 Oxygen Delivery Method Room Air 01/25/23 18:17 Oxygen Flow Rate 0 01/25/23 18:17 Pain Level 10 01/25/23 18:17
[2023-01-25] MEDS: Normal Saline 1,000 ML 1000 ML IV (19:03)
[2023-01-25 19:04] LABS: Abs Immature Grans 0.03 10^3/uL (0.0-0.06); Absolute Basophil Count 0.06 10^3/uL (0.0-0.2); Absolute Eosinophil Count 0.01 10^3/uL (0.0-0.7); Absolute Lymphocyte Count 1.58 10^3/uL (1.2-3.4); Absolute Monocyte Count 0.51 10^3/uL (0.1-0.8); Basophils % 0.5; Eosinophils % 0.1; HCT 46.4 % (36.0-46.0); HGB 15.8 g/dL (11.2-15.7); Immature Grans % 0.3; Lymphocytes % 13.9; MCH 30.1 pg (27.0-33.0); MCHC 34.1 % (32.0-36.0); MCV 88 fL (80-95); MPV 8.9 fL (8.0-11.0); Monocytes % 4.5; Neutrophils % 80.7; Platelet Count 331 10^3/uL (130-400); RBC 5.25 10^6/uL (3.93-5.22); RDW 12.6 % (11.7-14.6); RDW-SD 41.3 fL; WBC 11.38 10^3/uL (4.4-10.8)
[2023-01-25] MEDS: Droperidol 5 MG/2 ML VIAL 2.5 MG IVP ×2 (19:04→20:46)
[2023-01-25 19:06] LABS: Absolute Neutrophil Count 9.18 10^3/uL (1.2-6.7)
[2023-01-25] MEDS: Omnipaque 350 MG/ML 100 ML BTL IJ (19:14)
[2023-01-25] MEDS: Normal Saline - Diluent 50 ML VIAL IV (19:16)
[2023-01-25] MEDS: Normal Saline Flush 10 ML SYR IVP (19:16)
[2023-01-25 19:22] LABS: ALT 21 U/L (14-59); AST 13 U/L (15-37); Albumin 4.3 g/dL (3.4-5.0); Alkaline Phosphatase 43 U/L (46-116); Anion Gap 9.3 mmol/L (3-11); BUN 13 mg/dL (7-18); Bilirubin, Total 1.1 mg/dL (0.2-1.0); CO2 25.7 mmol/L (21.0-32.0); Calcium 9.2 mg/dL (8.5-10.1); Chloride 105 mmol/L (98-107); Estimated GFR 73.04 (mL/min/1.73m2); Glucose 126 mg/dL (74-106); Lipase 19 U/L (16-77); Potassium 3.9 mmol/L (3.5-5.1); Sodium 140 mmol/L (136-145); Total Protein 7.7 g/dL (6.4-8.2)
[2023-01-25] MEDS: diphenhydrAMINE 50 MG/ML VIAL IVP (20:01)
[2023-01-25] MEDS: Ondansetron 4 MG/2 ML VIAL IVP (20:01)
--- NOTE | 2023-01-25 20:22 | DI.VRAD_ITS ---
PROCEDURE INFORMATION: Exam: CT Abdomen And Pelvis With Contrast Exam date and time: 01/25/2023 7:40 PM Age: 42 years old Clinical indication: Abdominal pain; Localized; Prior surgery; Surgery date: 6+ months; Surgery type: S/P hysterectomy and cholecystectomy. Patient HX: Epigastric pain, nausea, vomiting TECHNIQUE: Imaging protocol: Computed tomography of the abdomen and pelvis with contrast. Radiation optimization: All CT scans at this facility use at least one of these dose optimization techniques: automated exposure control; mA and/or kV adjustment per patient size (includes targeted exams where dose is matched to clinical indication); or iterative reconstruction. Contrast material: OMNIPAQUE 350; Contrast volume: 100 ml; Contrast route: INTRAVENOUS (IV); COMPARISON: CT ABDOMEN PELVIS WO 08/16/2021 8:56 PM FINDINGS: Liver: Focal fat adjacent to the falciform ligament in the liver. Gallbladder and bile ducts: Prior cholecystectomy. No biliary duct dilatation. Pancreas: Normal. No ductal dilation. Spleen: Normal. No splenomegaly. Adrenal glands: Normal. No mass. Kidneys and ureters: Normal. No hydronephrosis. Stomach and bowel: Unremarkable. No obstruction. No mucosal thickening. Appendix: No evidence of appendicitis. Intraperitoneal space: Unremarkable. No free air. No significant fluid collection. Vasculature: Retroaortic left renal vein. Minimal calcified atherosclerotic disease. No aneurysm. Lymph nodes: Unremarkable. No enlarged lymph nodes. Urinary bladder: Unremarkable as visualized. Reproductive: The uterus is absent. No adnexal mass. Bilateral tubal ligation clips are noted. Bones/joints: Severe L5-S1 degenerative disc disease, not significantly changed. No acute fracture or focal suspicious osseous lesion. Soft tissues: Unremarkable. IMPRESSION: No acute abnormality. Dictated and Authenticated by: Baltazar Frank MD. Ordering:ALEXIS Martinez MD
[2023-01-25] MEDS: Famotidine 20 MG/2 ML VIAL IVP (20:46)
[2023-01-25 21:20] VITALS: BP 148/60; PULSE 85; RESP 18
== END 2023-01-25 21:23 | disposition home or self-care (01) ==
PROVIDERS: Emergency Provider Student in an Organized Health Care Education/Training Program; PCP Internal Medicine
DX: R10.13 Epigastric pain (principal); R11.10 Vomiting, unspecified; F17.210 Nicotine dependence, cigarettes, uncomplicated
CPT/HCPCS: 80053; 83690; 96361; 96374; 96375; 96376; 99285; 74177; 83735; 85025; 99284; J1200; J1790; J2405; J3490

== ENCOUNTER 2023-04-18 11:36 | Emergency (ER) | payer MEDICAID, SELFPAY ==
[2023-04-18 11:48] VITALS: BP 163/94; PULSE 68; RESP 16; TEMP 36.4; O2SAT 97
[2023-04-18] MEDS: Ibuprofen 600 MG TAB PO (12:41)
--- NOTE | 2023-04-18 12:41 | ED.GENADUL_ITS ---
HPI General Stated Complaint: EarProblem ИРИНА: 4 Date/Time Provider Initiated Documentation: 04/18/23 12:26. HPI Narrative: This 42-year-old female presents with ear pain and headache, right-sided since this morning. Has not taken any meds that she worked overnight. Has had upper respiratory symptoms. Denies any fever or chills. Denies any chance of . Denies stiff neck. Denies any dental pain. Related Data Home Medications Medication Instructions Recorded Confirmed ibuprofen 600 mg tablet 600 mg PO QID PRN Pain #20 tabs 02/28/17 04/18/23 amoxicillin 875 mg-potassium 1 tab PO BID #14 tabs 04/18/23 clavulanate 125 mg tablet Previous Rx's Medication Instructions Recorded ibuprofen 600 mg tablet 600 mg PO QID PRN Pain #20 tabs 02/28/17 amoxicillin 875 mg-potassium 1 tab PO BID #14 tabs 04/18/23 clavulanate 125 mg tablet Allergies Allergy/AdvReac Type Severity Reaction Status Date / Time codeine Allergy Intermediate Facial Unverified 04/18/23 11:51 swelling PFSH All Active Problems (Updated 04/18/23 @ 12:32 by ANALISA De Los Santos) Otitis media (Acute) Surgical History S/P cholecystectomy History of hysterectomy, supracervical 2014 S/P tubal ligation Family History Father COPD (chronic obstructive pulmonary disease) Mother Bone cancer Social History Smoking/Tobacco Use Status: Current every day Tobacco Type: cigarettes Smoking risk assessment performed?: Yes Alcohol Intake: never Drug use: Socially Substance use type: marijuana Do you feel safe at home: Yes Do you feel safe in your relationship?: Yes Course Vital Signs Vital signs: Vital Signs Temperature 36.4 C L 04/18/23 11:48 Pulse 68 04/18/23 11:48 Respiratory Rate 16 04/18/23 11:48 Blood Pressure 163/94 H 04/18/23 11:48 Pulse Oximetry 97 04/18/23 11:48 Temperature 36.4 C L 04/18/23 11:48 Pulse 68 04/18/23 11:48 Respiratory Rate 16 04/18/23 11:48 Blood Pressure 163/94 H 04/18/23 11:48 Pulse Oximetry 97 04/18/23 11:48 Medical Decision Making This 42-year-old female presents with report of ear pain, she is alert and orien isamar, no evidence of intraoral pathology, tympanic membrane is injected bulging, there is fluid, there is no mastoid tenderness, there is no drainage Will place on Augmentin Motrin and Tylenol as needed for pain Return precautions reviewed and patient expressed understanding, discharged home in stable condition with stable vitals Quality:SDMT Health Related Social Needs: No Data to Display Discharge Plan Disposition Patient Disposition: Home Discharge Details Clinical Impression: Otitis media Primary Care Provider: Norman Davidson ED Provider: Aleah Antunez Home Meds and New Rx's Prescriptions: New amoxicillin-pot clavulanate 875-125 mg tablet 1 tab PO BID Qty: 14 0RF Continued ibuprofen 600 MG tablet 600 mg PO QID PRN (Reason: Pain) Qty: 20 0RF Discharge Instructions Instructions: Ear Infection (ED) Additional Instructions: Take antibiotic as prescribed Motrin 600 mg every 8 hours with food Yogurt daily while on antibiotic You may take Tylenol 650 every 4 hours for breakthrough pain Return earlier should he have new or worsening complaints Referrals: Norman Davidson [Primary Care Provider] - Discharge Data Discharge Date/Time-TO BE ENTERED AT DEPARTURE: 04/18/23 12:50
== END 2023-04-18 12:50 | disposition home or self-care (01) ==
PROVIDERS: Emergency Provider Physician Assistant; PCP Internal Medicine
DX: H66.91 Otitis media, unspecified, right ear (principal); R51.9 Headache, unspecified; F17.210 Nicotine dependence, cigarettes, uncomplicated
CPT/HCPCS: 99283

== ENCOUNTER 2023-06-30 12:04 | Outpatient (REF) | payer MEDICAID, SELFPAY ==
--- NOTE | 2023-06-30 11:45 | PAPFT_PTH ---
PATIENT: Kaylee Napier LOC: [facility] U#:[id number] AGE/SX: 42/F ROOM: RE06/30/[address]: Lucero Flores NP : 1980 BED: DIS: 06/30/2023 SPEC #: [id number] RECD: 06/30/23 15:40 STATUS: KARAN REIván #: [id number] JENNIFER: 06/30/23 11:[address]: Lucero Flores NP DEPT: [facility] Cytology RECD BY: Luz Elena Finney ENTERED: 06/30/23 15:41 SP TYPE: PAPFT OTHR DR: Norman Davidson Tissues: 1 - CX/ENDOCX FOR PAP SMEARS Procedures: PAP THIN PREP/[facility] Screening HPV DNA PROBE Comments: [id number] (CHLAMYDIA/GC)
[2023-07-01 17:04] LABS: Chlamydia Result Negative (Negative); GC Result Negative (Negative)
== END 2023-06-30 12:05 | disposition home or self-care (01) ==
LOC: LBN 12:04
PROVIDERS: PCP Internal Medicine; Visit Provider Nurse Practitioner Women's Health
DX: N76.0 Acute vaginitis (principal)
CPT/HCPCS: 87491; 87591; 88142; 87480; 87510; 87624; 87660

== ENCOUNTER → 2023-07-06 01:54 | Outpatient (CLI) | payer MEDICAID, SELFPAY ==
--- NOTE | 2023-07-06 12:54 | DI.MAMMO_ITS ---
Exam(s) MAMMO SCREENING EXAM: MAMMO SCREENING CLINICAL HISTORY: screening. TECHNIQUE: Bilateral full field digital CC and MLO mammographic images were obtained with 3D tomosyn thesis and utilizing computer aided detection (CAD). COMPARISON: Is a baseline mammogram on this 42-year-old FINDINGS: There are no CAD designations. There are no new spiculated masses nor malignant appearing microcalcification groups. There is no significant architectural distortion nor skin thickening-retraction. IMPRESSION: No radiographic evidence of malignancy. BI-RADS Category 1 - Negative Breast Density - Category B - Scattered areas of fibroglandular density Breast density Category C or D implies that the patient has dense breast tissue. Dense breast tissue can make it harder to find cancer on a mammogram. Dense breast tissue is also associated with an incr eased risk of breast cancer. This information about the result of the mammogram report was provided to the patient to raise their awareness. Use this report when you speak with the patient about their risks for breast cancer, which includes their family history. At that time, you may recommend additional screening tests (Ultrasoun d or MRI) as these tests may add significant information. A negative radiographic report should not delay biopsy if a dominant or clinically suspicious mass is present. Up to ten percent of cancers are not identified on mammography. A negative report may reinforce clinical impression. Adenosis and dense breasts may obscure an underlying neoplasm. False positive reports average 6 to 10%. Patient will receive a letter notifying them of these results.
== END ==
PROVIDERS: PCP Internal Medicine; Visit Provider Nurse Practitioner Women's Health
DX: Z12.31 Encounter for screening mammogram for malignant neoplasm of breast (principal)
CPT/HCPCS: 77063; 77067

== ENCOUNTER 2023-07-11 22:53 | Emergency (ER) | payer MEDICAID, SELFPAY ==
[2023-07-11 23:01] VITALS: BP 146/113; PULSE 124; RESP 26; TEMP 36.7; O2SAT 98
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
[2023-07-11 23:41] LABS: Bilirubin Small (Negative); Blood Small (Negative); Clarity Sl Cloudy (Clear); Glucose Negative (Negative); Ketones Trace mg/dL (Negative); Leukocyte Esterase Negative (Negative); Nitrite Negative (Negative); Specific Gravity >= 1.030 (1.005-1.025); Urobilinogen 0.2 mg/dL (Up to 0.2); pH 5.5 (5-8)
[2023-07-11 23:51] LABS: Bacteria Moderate HPF (Negative); C & S Indicated? No/Sq. Contamination; Crystals Negative HPF (Negative); Epithelial Cells Moderate HPF (Negative); Mucus Moderate (Negative)
[2023-07-11 23:53] LABS: *AMPHETAMINES SCREEN URINE Negative (Negative); *BARBITURATES SCREEN URINE Negative (Negative); *BENZODIAZEPINES SCREEN URINE Negative (Negative); Cannabinoids THC Positive (Negative); Cocaine Screen,Urine Negative (Negative); METHADONE URINE SCREEN Negative (Negative); OPIATES URINE SCREEN Negative (Negative)
[2023-07-11 23:54] LABS: Tricyclic Antidepressants Negative (Negative)
[2023-07-12 00:05] LABS: Abs Immature Grans 0.02 10^3/uL (0.0-0.06); Absolute Basophil Count 0.04 10^3/uL (0.0-0.2); Absolute Eosinophil Count 0.04 10^3/uL (0.0-0.7); Absolute Lymphocyte Count 1.94 10^3/uL (1.2-3.4); Absolute Monocyte Count 0.69 10^3/uL (0.1-0.8); Absolute Neutrophil Count 5.57 10^3/uL (1.2-6.7); Basophils % 0.5; Eosinophils % 0.5; HCT 48.4 % (36.0-46.0); HGB 16.2 g/dL (11.2-15.7); Immature Grans % 0.2; Lymphocytes % 23.4; MCH 31.2 pg (27.0-33.0); MCHC 33.5 % (32.0-36.0); MCV 93 fL (80-95); MPV 8.7 fL (8.0-11.0); Monocytes % 8.3; Neutrophils % 67.1; Platelet Count 341 10^3/uL (130-400); RDW 13.3 % (11.7-14.6); RDW-SD 45.7 fL
--- NOTE | 2023-07-12 00:15 | RT.EKG_ITS ---
APPROVED REPORT Exam: Resting ECG Reason for Exam: hypokalemia Patient Location: E HR:84 bpm ECG Measurements Heart Rate 84 AXIS TN 135 P 65 QRSd 88 QRS 66 QT 352 T 46 QTc 416 Conclusion Sinus rhythm...normal P axis, V-rate 60- [address] segment or t wave abnormalities to suggest occlusive mi
[2023-07-12 00:17] LABS: ETHANOL BLOOD < 3.0 mg/dL (<10)
[2023-07-12 00:20] LABS: ALT 24 U/L (14-59); AST 13 U/L (15-37); Albumin 4.3 g/dL (3.4-5.0); Alkaline Phosphatase 46 U/L (46-116); Anion Gap 12.1 mmol/L (3-11); BUN 14 mg/dL (7-18); Bilirubin, Total 0.9 mg/dL (0.2-1.0); CO2 24.9 mmol/L (21.0-32.0); Calcium 8.8 mg/dL (8.5-10.1); Chloride 104 mmol/L (98-107); Estimated GFR 73.04 (mL/min/1.73m2); Glucose 141 mg/dL (74-106); Sodium 141 mmol/L (136-145); Total Protein 7.4 g/dL (6.4-8.2)
[2023-07-12] MEDS: Potassium Chloride 20 MEQ TABCR 40 MEQ PO (00:28)
[2023-07-12 00:48] VITALS: BP 136/91; PULSE 87; RESP 22; TEMP 36.9; O2SAT 100
== END 2023-07-12 01:52 | disposition left against medical advice (07) ==
PROVIDERS: Emergency Provider Student in an Organized Health Care Education/Training Program; PCP Internal Medicine
DX: F30.10 Manic episode without psychotic symptoms, unspecified (principal); E87.6 Hypokalemia; F17.210 Nicotine dependence, cigarettes, uncomplicated; Z53.29 Procedure and treatment not carried out because of patient's decision for other reasons
CPT/HCPCS: 36415; 80053; 80307; 82962; 93005; 99284; 80320; 81003; 81015; 85025; 93010

== ENCOUNTER 2023-07-12 18:24 | Emergency (ER) | payer MEDICAID, SELFPAY ==
[2023-07-12] VITALS (20 sets, daily range): BP systolic 116–153; BP diastolic 67–120; PULSE 55–91; RESP 14–20; TEMP 36.8; O2SAT 97–100
--- NOTE | 2023-07-12 19:00 | DI.CT_ITS ---
Exam(s) CT ABDOMEN PELVIS W EXAM: CT ABDOMEN PELVIS W CLINICAL HISTORY: right sided abd pain. TECHNIQUE: Imaging Protocol: Axial computed tomography images with coronal and sagittal reformatted images were created and reviewed CONTRAST MATERIAL: Intravenous: Omnipaque 350 Contrast volume:100 ml Oral: no COMPARISON: CT CT ABDOMEN PELVIS WO from 08/16/[address] ABDOMEN PELVIS W from 01/25/2023 FINDINGS: ABDOMEN and PELVIS: Lung Bases: No acute findings. Stable 5 millimeter nodule in noted right lower lobe. No follow-up recommended. Liver: Normal density. Focal fat again noted near the falciform ligament. Gallbladder and biliary tract: Status post cholecystectomy. No biliary dilatation. Pancreas: Normal density. No abnormal calcifications or inflammatory process. No evidence of mass. Spleen: Normal. Kidneys: Normal size, contour and axis. No radiodense stones. No obstructive uropathy. No suspicious masses seen. Adrenal glands: No masses seen. Vasculature: Abdominal aorta non-dilated. Mild atherosclerotic changes. Soft tissues: Unremarkable. Bladder: Nearly empty. Bowel: No obstruction. No bowel wall thickening. Appendix normal. Peritoneal cavity: No ascites. No focal collection or mesenteric inflammatory response. Bones: Severe degenerative disc changes again noted at L5-S1. Central disc protrusion at L4-5 causin g and elements of spinal stenosis. Reproductive organs: Within normal limits. Tubal ligation clips. Lymph nodes: Unremarkable. IMPRESSION:: No acute abnormality in the abdomen or pelvis. RADIATION DOSE DELIVERED: Total DLP DATA REPOSITORY: All CT scans at this facility are submitted to the National Radiology Data Registry (NRDR) Dose Index Registry (DIR) with the [employer] (ACR). RADIATION OPTIMIZATION: All CT scans at this facility use at least one of these dose optimization te chniques: automated exposure control; mA and/or kV adjustment per patient size (includes targeted exa ms where dose is matched to clinical indication); or iterative reconstruction.
--- NOTE | 2023-07-12 19:00 | DI.CT_ITS ---
Exam(s) CT HEAD WO EXAM: CT HEAD WO CLINICAL HISTORY: corinne. TECHNIQUE: Imaging Protocol: Axial computed tomography images with coronal and sagittal reformatted images were created and reviewed COMPARISON: No exams were available for comparison FINDINGS: Ventricles and Extra axial spaces: Normal in size and morphology for the patient's age. Hemorrhage: None. Cerebral parenchyma: No evidence of acute infarct or mass. Midline shift: None. Brainstem/Cerebellum: Normal. Calvarium: Normal. Visualized Paranasal sinuses:Clear. Mastoids: Clear. Soft Tissues: Unremarkable. ORBITS: Unremarkable. PITUITARY: Not enlarged. IMPRESSION: No acute intracranial process. RADIATION DOSE DELIVERED: Total DLP DATA REPOSITORY: All CT scans at this facility are submitted to the National Radiology Data Registry (NRDR) Dose Index Registry (DIR) with the [employer] (ACR). RADIATION OPTIMIZATION: All CT scans at this facility use at least one of these dose optimization te chniques: automated exposure control; mA and/or kV adjustment per patient size (includes targeted exa ms where dose is matched to clinical indication); or iterative reconstruction.
[2023-07-12] MEDS: Normal Saline 1,000 ML 1000 ML IV (19:15)
[2023-07-12] MEDS: OLANZapine 10 MG VIAL IM (19:17)
[2023-07-12 19:20] LABS: Abs Immature Grans 0.02 10^3/uL (0.0-0.06); Absolute Basophil Count 0.04 10^3/uL (0.0-0.2); Absolute Eosinophil Count 0.03 10^3/uL (0.0-0.7); Absolute Lymphocyte Count 2.46 10^3/uL (1.2-3.4); Absolute Monocyte Count 0.93 10^3/uL (0.1-0.8); Absolute Neutrophil Count 5.07 10^3/uL (1.2-6.7); Basophils % 0.5; Eosinophils % 0.4; HCT 47.3 % (36.0-46.0); HGB 16.1 g/dL (11.2-15.7); Immature Grans % 0.2; Lymphocytes % 28.8; MCH 31.4 pg (27.0-33.0); MCV 92 fL (80-95); MPV 8.6 fL (8.0-11.0); Monocytes % 10.9; Neutrophils % 59.2; Platelet Count 354 10^3/uL (130-400); RBC 5.13 10^6/uL (3.93-5.22); RDW 13.2 % (11.7-14.6); RDW-SD 44.9 fL; WBC 8.55 10^3/uL (4.4-10.8)
--- NOTE | 2023-07-12 19:31 | W.ED.GENAD ---
Discharge Plan Disposition Patient Disposition: Home Condition: Improving Discharge Details Chief Complaint: Abd Prob Clinical Impression: Psychiatric disorder Primary Care Provider: Norman Davidson ED Provider: Osmin Solano Home Meds and New Rx's Prescriptions: No Action No Known Home Meds Discharge Instructions Instructions: Bipolar Disorder (ED) Additional Instructions: Please follow-up with [facility] human services as outpatient. Please return to the emergency department for any worsening symptoms HPI General Date/Time Provider Initiated Documentation: 07/12/23 18:35. HPI Narrative: 42-year-old female presents with abdominal discomfort and nausea, found yesterday to be hypokalemic repleted and discharged home after psychiatric evaluation, concerning behavior on outpatient basis, flight of ideas delusional thoughts flight of speech. Patient denies SI or HI. Denies definitive psychiatric diagnosis and denies psychiatric medication use currently. Related Data Home Medications Medication Instructions Recorded Confirmed Unknown [No Known Home Meds] 07/12/23 07/12/23 Allergies Allergy/AdvReac Type Severity Reaction Status Date / Time codeine Allergy Intermediate Facial Unverified 07/11/23 23:14 swelling General Stated Complaint: Abd Prob ИРИНА: 3 Review of Systems Narrative: Review of Systems Constitutional: negative Eyes: negative ENT: negative Cardiovascular: negative Respiratory: negative Gastrointestinal: Abdominal pain : negative Musculoskeletal: negative Skin: negative Neurologic: negative Psych: negative Exam Narrative Exam Narrative: Physical Examination General: alert, awake, cooperative, resting comfortably, no acute distress HEENT: normocephalic, atraumatic; PERRL, EOM intact, conjunctiva normal; no nasal discharge; moist mucous membranes, oral and pharyngeal mucosa normal, tolerating secretions Neck: supple, trachea midline; full ROM Chest: normal to inspection Respiratory: normal respiratory effort, speaking in full sentences, clear to auscultation, no wheezing, rales or rhonchi Cardiac: regular rate, regular rhythm, S1S2 intact, no murmurs rubs or gallops GI: abdomen soft, non-tender, non-distended; no palpable mass or hepatosplenomegaly Skin: no lesions, rashes or trauma appreciated Neuro: AAOx3, normal speech, moving all extremities Psych: Pressured speech, flight of ideas, tangential, delusional thoughts Course Vital Signs Vital signs: Vital Signs Temperature 36.8 C 07/12/23 18:33 Pulse 91 H 07/12/23 18:33 Respiratory Rate 20 07/12/23 18:33 Pulse Oximetry 99 07/12/23 18:33 Temperature 36.8 C 07/12/23 18:33 Pulse 74 07/12/23 18:45 Respiratory Rate 20 07/12/23 18:33 Respiratory Effort Normal 07/12/23 18:37 Blood Pressure 143/107 H 07/12/23 18:45 Blood Pressure Mean 116 07/12/23 18:45 Pulse Oximetry 98 07/12/23 18:45 Lab/Test Results Lab/Test Results: Laboratory Tests Range/Units 07/12/23 19:08 WBC (4.4-10.8) 10^3/uL 8.55 RBC (3.93-5.22) 10^6/uL 5.13 Hgb (11.2-15.7) g/dL 16.1 H Hct (36.0-46.0) % 47.3 H MCV (80-95) fL 92 MCH (27.0-33.0) pg 31.4 MCHC (32.0-36.0) % 34.0 RDW (11.7-14.6) % 13.2 Plt Count (130-400) 10^3/uL 354 MPV (8.0-11.0) fL 8.6 Immature Gran % 0.2 Neutrophils % 59.2 Lymphocytes % 28.8 Monocytes % 10.9 Eosinophils % 0.4 Basophils % 0.5 Nucleated RBC % (0.0-0.3) % 0.0 Absolute Neutrophils (1.2-6.7) 10^3/uL 5.07 Absolute Lymphocytes (1.2-3.4) 10^3/uL 2.46 Absolute Monocytes (0.1-0.8) 10^3/uL 0.93 H Absolute Eosinophils (0.0-0.7) 10^3/uL 0.03 Absolute Basophils (0.0-0.2) 10^3/uL 0.04 Medical Decision Making 42-year-old female history of hypokalemia, likely longstanding psychiatric disorder however patient denies definitive diagnosis, denies active psychiatric medications, evaluated yesterday by mental health services discharged home, presents today with flight of ideas tangential speech and delusions; also endorses acute on chronic abdominal discomfort and nausea, calm and redirectable however perseverating on family and community members conspiring against her. No external signs of trauma. No signs of intoxication. Afebrile nontoxic nonmeningeal. Hypertension and borderline tachycardia likely related to psychomotor agitation. Will evaluate for metabolic process or intra-abdominal process. Low suspicion for toxicologic process or traumatic process. Will load with olanzapine. Once medically cleared will need psychiatric evaluation for likely inpatient treatment, high clinical suspicion for bipolar with psychotic features 21: [facility] human services has come to bedside to evaluate patient. They are coordinating follow-up appointment in the coming days as an outpatient. Patient does not wish to stay for further psychiatric treatment. Calm cooperative interactive. No SI no HI. Quality:SDOH Health Related Social Needs: No Data to Display PFSH All Active Problems (Updated 07/12/23 @ 21:57 by Osmin Solano MD) Psychiatric disorder (Acute) Amanda (Acute) Surgical History S/P cholecystectomy History of hysterectomy, supracervical 2014 S/P tubal ligation Family History Father COPD (chronic obstructive pulmonary disease) Mother Bone cancer Social History Smoking/Tobacco Use Status: Current every day Tobacco Type: cigarettes Smoking risk assessment performed?: Yes Alcohol Intake: never Drug use: Socially Substance use type: marijuana, heroin and methamphetamine Details: Pt stating she had been sober since May until this evening Housing: other Do you feel safe at home: Yes Do you feel safe in your relationship?: Yes
[2023-07-12 19:43] LABS: ALT 27 U/L (14-59); AST 16 U/L (15-37); Acetaminophen < 2 ug/mL (10-30); Albumin 4.4 g/dL (3.4-5.0); Alkaline Phosphatase 44 U/L (46-116); Anion Gap 13.9 mmol/L (3-11); BUN 19 mg/dL (7-18); Bilirubin, Total 1.9 mg/dL (0.2-1.0); CO2 22.1 mmol/L (21.0-32.0); CREATININE 0.9 mg/dL (0.55-1.02); Calcium 9.1 mg/dL (8.5-10.1); Chloride 105 mmol/L (98-107); Estimated GFR 82.88 (mL/min/1.73m2); Glucose 85 mg/dL (74-106); Lipase 16 U/L (16-77); Magnesium 1.9 mg/dL (1.8-2.4); Potassium 3.7 mmol/L (3.5-5.1); Salicylate 4.2 mg/dL (<2.8); Sodium 141 mmol/L (136-145); TSH (W/Ref FT4) 1.26 uIU/mL (0.36-3.74); Total Protein 7.5 g/dL (6.4-8.2)
[2023-07-12 19:53] LABS: ETHANOL BLOOD < 3.0 mg/dL (<10)
[2023-07-12 20:12] LABS: Bilirubin Moderate (Negative); Blood Small (Negative); Clarity Clear (Clear); Glucose Negative (Negative); Ketones 80 mg/dL (Negative); Leukocyte Esterase Negative (Negative); Nitrite Negative (Negative); Specific Gravity >= 1.030 (1.005-1.025); Urobilinogen 0.2 mg/dL (Up to 0.2); pH 5.5 (5-8)
[2023-07-12] MEDS: Omnipaque 350 MG/ML 100 ML BTL IJ (20:21)
[2023-07-12 20:23] LABS: Bacteria Rare HPF (Negative); C & S Indicated? No; Casts Negative LPF (Negative); Crystals Negative HPF (Negative); Epithelial Cells Few HPF (Negative); Mucus Heavy (Negative); WBC 0-2 HPF (0-5)
[2023-07-12 20:24] LABS: *AMPHETAMINES SCREEN URINE Negative (Negative); *BARBITURATES SCREEN URINE Negative (Negative); *BENZODIAZEPINES SCREEN URINE Negative (Negative); Cannabinoids THC Positive (Negative); Cocaine Screen,Urine Negative (Negative); METHADONE URINE SCREEN Negative (Negative); OPIATES URINE SCREEN Negative (Negative)
[2023-07-12 20:25] LABS: Tricyclic Antidepressants Negative (Negative)
[2023-07-12] MEDS: Normal Saline Flush 10 ML SYR IVP (20:25)
[2023-07-12] MEDS: Normal Saline - Diluent 50 ML VIAL IJ (20:25)
[2023-07-12] MEDS: LORazepam 1 MG TAB PO (20:53)
--- NOTE | 2023-07-12 21:04 | DI.VRAD_ITS ---
PROCEDURE INFORMATION: Exam: CT Head Without Contrast Exam date and time: 07/12/2023 8:13 PM Age: 42 years old Clinical indication: Other: Amanda TECHNIQUE: Imaging protocol: Computed tomography of the head without contrast. Radiation optimization: All CT scans at this facility use at least one of these dose optimization techniques: automated exposure control; mA and/or kV adjustment per patient size (includes targeted exams where dose is matched to clinical indication); or iterative reconstruction. COMPARISON: No relevant prior studies available. FINDINGS: Brain: Normal. No hemorrhage. Unremarkable white matter. No mass effect. Cerebral ventricles: No ventriculomegaly. Paranasal sinuses: Visualized sinuses are unremarkable. No fluid levels. Mastoid air cells: Visualized mastoid air cells are well aerated. Bones/joints: Unremarkable. No acute fracture. Soft tissues: Unremarkable. IMPRESSION: No acute intracranial abnormality. Dictated and Authenticated by: Neri Robertson MD. Ordering:BAY Solorio MD
--- NOTE | 2023-07-12 21:26 | DI.VRAD_ITS ---
PROCEDURE INFORMATION: Exam: CT Abdomen And Pelvis With Contrast Exam date and time: 07/12/2023 8:20 PM Age: 42 years old Clinical indication: Abdominal pain; Localized; Patient HX: Right sided abd pain TECHNIQUE: Imaging protocol: Computed tomography of the abdomen and pelvis with contrast. Radiation optimization: All CT scans at this facility use at least one of these dose optimization techniques: automated exposure control; mA and/or kV adjustment per patient size (includes targeted exams where dose is matched to clinical indication); or iterative reconstruction. Contrast material: OMNIPAQUE 350; Contrast volume: 100 ml; Contrast route: INTRAVENOUS (IV); COMPARISON: CT ABDOMEN PELVIS W 01/25/2023 7:40 PM FINDINGS: Lungs: Stable 5 mm nodule within the left lower lobe. Liver: Focal fatty infiltration adjacent to the falciform ligament in the liver, stable. Gallbladder and bile ducts: Previous cholecystectomy. Pancreas: Normal. No ductal dilation. Spleen: Normal. No splenomegaly. Adrenal glands: Normal. No mass. Kidneys and ureters: Normal. No hydronephrosis. Stomach and bowel: Unremarkable. No obstruction. No mucosal thickening. Appendix: Appendix normal. Intraperitoneal space: Trace pelvic ascites, likely physiologic. Vasculature: Unremarkable. No abdominal aortic aneurysm. Lymph nodes: Unremarkable. No enlarged lymph nodes. Urinary bladder: Unremarkable as visualized. Reproductive: Unremarkable as visualized. Bones/joints: Central disc protrusion at L4-L5 extending 7 mm into the canal. Degenerative changes at L5-S1. Soft tissues: Unremarkable. IMPRESSION: 1. Stable 5 mm nodule within the left lower lobe. Recommend follow-up as indicated. 2. Appendix normal. 3. Central disc protrusion at L4-L5 extending 7 mm into the canal. Dictated and Authenticated by: Rashida Vickers MD. Ordering:BAY Solorio MD
== END 2023-07-12 22:00 | disposition home or self-care (01) ==
PROVIDERS: Emergency Provider Emergency Medicine; PCP Internal Medicine
DX: R10.31 Right lower quadrant pain (principal); R11.0 Nausea; F31.9 Bipolar disorder, unspecified; F17.210 Nicotine dependence, cigarettes, uncomplicated
CPT/HCPCS: 80053; 80307; 81025; 83690; 96360; 96372; 99285; 70450; 74177; 80320; 80329; 81003; 81015; 83735; 84443; 85025; 99284; J2359; J3490

== ENCOUNTER 2023-07-16 08:40 | Emergency (ER) | payer MEDICAID, SELFPAY ==
[2023-07-16 08:42] VITALS: BP 158/115; PULSE 123; RESP 24; TEMP 37; O2SAT 98
--- NOTE | 2023-07-16 08:54 | ED.GENADUL_ITS ---
Discharge Plan Disposition Patient Disposition: Home Condition: Stable Discharge Details Chief Complaint: PsychEval Clinical Impression: Psychiatric disorder Primary Care Provider: Norman Davidson ED Provider: Sukh Flores Home Meds and New Rx's Prescriptions: No Action No Known Home Meds Discharge Instructions Additional Instructions: Follow-up with [facility] nausea primary care provider If you feel more ill, or start having thoughts of self-harm return to the emergency department for reevaluation HPI General Mode of arrival: ambulatory . Date/Time Provider Initiated Documentation: 07/16/23 08:42 . Information obtained by: patient . History of Present Illness 42 year old F presents to the emergency department with the chief complaint of Feels crazy, described as moderate, and it has been constant. No relieving factors improve symptom(s), No exacerbating factors reported . Patient notes no other symptoms.; denies chest pain and shortness of breath. Patient did receive the following treatments prior to arrival, none Related Data Home Medications Medication Instructions Recorded Confirmed Unknown [No Known Home Meds] 07/12/23 07/16/23 Allergies Allergy/AdvReac Type Severity Reaction Status Date / Time codeine Allergy Intermediate Facial Unverified 07/16/23 08:47 swelling General Stated Complaint: PsychEval ИРИНА: 2 Review of Systems All systems reviewed & are unremarkable except as noted in HPI and below Constitutional Constitutional: Denies chills, Denies fever(s) and Denies weakness Cardiovascular Cardiovascular: Denies chest pain and Denies dyspnea Respiratory Respiratory: Denies cough and Denies dyspnea Gastrointestinal Gastrointestinal: Denies abdominal pain, Denies nausea and Denies vomiting Musculoskeletal Musculoskeletal: Denies joint swelling Neurologic Neurologic: Denies weakness Psychiatric Psychiatric: Denies depression Exam Const General: no acute distress Orientation: alert HENMT Head: normal to inspection Ears: external ears normal General nose exam: external nose normal Mouth: moist mucous membranes Eyes General: appearance normal, both eyes and all related structures Neck Neck: normal visual inspection Resp Effort & Inspection: normal respiratory effort and able to speak in complete sentences Auscultation: clear to auscultation bilaterally Cardio Jugular venous pressure: no JVD Rate: regular rate Heart Sounds: no murmurs Skin General skin exam: no rashes or lesions noted Neuro General: patient alert and patient oriented x3 Extrem General: normal to inspection Psych Mental Status: mental status grossly normal Course Vital Signs Vital signs: Vital Signs Temperature 37.0 C 04/12/24 08:42 Pulse 123 H 07/16/23 08:42 Respiratory Rate 24 07/16/23 08:42 Blood Pressure 158/115 H 07/16/23 08:42 Pulse Oximetry 98 07/16/23 08:42 Temperature 37.0 C 07/16/23 08:42 Temperature Source Temporal Artery Scan 07/16/23 08:42 Pulse 123 H 07/16/23 08:42 Respiratory Rate 24 07/16/23 08:42 Respiratory Effort Normal 07/16/23 08:53 Blood Pressure 158/115 H 07/16/23 08:42 Blood Pressure Position Sitting 07/16/23 08:42 Pulse Oximetry 98 07/16/23 08:42 Oxygen Delivery Method Room Air 07/16/23 08:42 Oxygen Flow Rate 0 07/16/23 08:42 Pain Level 0 07/16/23 08:42 Medical Decision Making 42-year-old female who states she has a history of PTSD comes in with complaints of feeling crazy. She has been seen twice within the past week for similar symptoms, had unremarkable lab work, also had negative CT head and was complaining of abdominal pain and had a CT abdomen pelvis which was negative. She has been seen by mental health and has had a safety plan in place. Patient denies any SI HI, does have tangential thinking, will start talking and then stop. She is calm and cooperative, does appear anxious. Given reassuring recent imaging and lab work do not feel any additional testing indicated, will have mental health evaluate. Patient's urine consistent with UTI, [id number] test indeterminate so serum was sent which was negative, patient has had a hysterectomy. She was given a one-time dose of fosfomycin. She was seen by [facility] services and will follow-up with her today, she is stable for discharge and return precautions given Differential Diagnosis Differential Diagnosis: Amanda, substance abuse, schizophrenia Quality:SDOH Health Related Social Needs: No Data to Display PFSH All Active Problems (Updated 07/16/23 @ 10:12 by Sukh Flores MD) Psychiatric disorder (Acute) Amanda (Acute) Surgical History S/P cholecystectomy History of hysterectomy, supracervical 2014 S/P tubal ligation Family History Father COPD (chronic obstructive pulmonary disease) Mother Bone cancer Social History Smoking/Tobacco Use Status: Current every day Tobacco Type: cigarettes Smoking risk assessment performed?: Yes Alcohol Intake: never Drug use: Socially Substance use type: marijuana, heroin and methamphetamine Details: Pt stating she had been sober since May until this evening Housing: other Do you feel safe at home: Yes Do you feel safe in your relationship?: Yes
[2023-07-16 09:10] LABS: Bilirubin Moderate (Negative); Blood Trace-intact (Negative); Clarity Clear (Clear); Glucose Negative (Negative); Ketones 15 mg/dL (Negative); Leukocyte Esterase Negative (Negative); Nitrite Positive (Negative); Specific Gravity >= 1.030 (1.005-1.025)
--- NOTE | 2023-07-16 09:11 | NUR.NOTE ---
Very faint second line, HCG test will be drawn. Nursing Note:
--- NOTE | 2023-07-16 09:12 | NUR.NOTE ---
Very faint Second line, HCG test will be drawn. Nursing Note:
[2023-07-16 09:19] LABS: Bacteria Rare HPF (Negative); C & S Indicated? Yes; Casts 0-2 Hyaline LPF (Negative); Crystals Negative HPF (Negative); Epithelial Cells Rare HPF (Negative); Mucus Moderate (Negative); RBC 0-2 HPF (0-2); WBC Negative HPF (0-5)
[2023-07-16 09:25] LABS: *AMPHETAMINES SCREEN URINE Negative (Negative); *BARBITURATES SCREEN URINE Negative (Negative); *BENZODIAZEPINES SCREEN URINE Negative (Negative); Cannabinoids THC Positive (Negative); Cocaine Screen,Urine Negative (Negative); METHADONE URINE SCREEN Negative (Negative); OPIATES URINE SCREEN Negative (Negative)
[2023-07-16] MEDS: Fosfomycin Tromethamine 3 GM PACKET PO (09:25)
[2023-07-16 09:36] LABS: Tricyclic Antidepressants Negative (Negative)
[2023-07-16 09:44] LABS: HCG Qual (Serum) Negative
[2023-07-16 10:17] VITALS: BP 158/115; PULSE 123; RESP 24; TEMP 37; O2SAT 98
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
== END 2023-07-16 10:18 | disposition home or self-care (01) ==
PROVIDERS: Emergency Provider Emergency Medicine; PCP Internal Medicine
DX: F99 Mental disorder, not otherwise specified (principal); N39.0 Urinary tract infection, site not specified
CPT/HCPCS: 00123; 36415; 80307; 81025; 96127; 99283; 81003; 81015; 84703; 87086; J3490

== ENCOUNTER 2023-07-17 19:52 | Emergency (ER) | payer MEDICAID, SELFPAY ==
[2023-07-17 20:36] VITALS: BP 127/85; PULSE 84; RESP 16; TEMP 37.1; O2SAT 99
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
[2023-07-17 21:21] LABS: Abs Immature Grans 0.03 10^3/uL (0.0-0.06); Absolute Basophil Count 0.03 10^3/uL (0.0-0.2); Absolute Eosinophil Count 0.05 10^3/uL (0.0-0.7); Absolute Lymphocyte Count 2.61 10^3/uL (1.2-3.4); Absolute Monocyte Count 0.71 10^3/uL (0.1-0.8); Absolute Neutrophil Count 5.14 10^3/uL (1.2-6.7); Basophils % 0.4; Eosinophils % 0.6; HCT 41.9 % (36.0-46.0); HGB 14.6 g/dL (11.2-15.7); Immature Grans % 0.4; Lymphocytes % 30.5; MCH 31.9 pg (27.0-33.0); MCHC 34.8 % (32.0-36.0); MCV 92 fL (80-95); MPV 8.9 fL (8.0-11.0); Monocytes % 8.3; Neutrophils % 59.8; Platelet Count 302 10^3/uL (130-400); RBC 4.57 10^6/uL (3.93-5.22); RDW 13.2 % (11.7-14.6); RDW-SD 44.6 fL; WBC 8.57 10^3/uL (4.4-10.8)
[2023-07-17 21:34] LABS: Anion Gap 9.9 mmol/L (3-11); BUN 19 mg/dL (7-18); CO2 25.1 mmol/L (21.0-32.0); CREATININE 0.7 mg/dL (0.55-1.02); Calcium 8.7 mg/dL (8.5-10.1); Chloride 107 mmol/L (98-107); Estimated GFR 112.05 (mL/min/1.73m2); Glucose 93 mg/dL (74-106); Potassium 3.4 mmol/L (3.5-5.1); Sodium 142 mmol/L (136-145)
[2023-07-17 21:36] LABS: HCG Qual (Serum) Negative
[2023-07-17 21:37] LABS: Salicylate 5.8 mg/dL (<2.8)
[2023-07-17 21:40] LABS: Acetaminophen < 2 ug/mL (10-30)
[2023-07-17 21:47] LABS: ETHANOL BLOOD < 3.0 mg/dL (<10)
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
[2023-07-17] MEDS: hydrOXYzine HCL 25 MG TAB PO (22:48)
[2023-07-17 22:51] LABS: Bilirubin Small (Negative); Blood Moderate (Negative); Clarity Clear (Clear); Glucose Negative (Negative); Ketones 40 mg/dL (Negative); Leukocyte Esterase Negative (Negative); Nitrite Negative (Negative); Specific Gravity >= 1.030 (1.005-1.025)
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
[2023-07-17 23:10] LABS: *AMPHETAMINES SCREEN URINE Negative (Negative); *BARBITURATES SCREEN URINE Negative (Negative); *BENZODIAZEPINES SCREEN URINE Negative (Negative); Bacteria Few HPF (Negative); C & S Indicated? No; Cannabinoids THC Positive (Negative); Casts Negative LPF (Negative); Cocaine Screen,Urine Negative (Negative); Crystals Negative HPF (Negative); Epithelial Cells Many HPF (Negative); METHADONE URINE SCREEN Negative (Negative); Mucus Negative (Negative); OPIATES URINE SCREEN Negative (Negative); WBC Negative HPF (0-5)
[2023-07-17 23:12] LABS: Tricyclic Antidepressants Negative (Negative)
[2023-07-17 23:13] LABS: Salicylate 6.1 mg/dL (<2.8)
[2023-07-17 23:20] LABS: TSH (W/Ref FT4) 2.86 uIU/mL (0.36-3.74)
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
[2023-07-18] MEDS: OLANZapine 10 MG TAB 20 MG PO (01:35)
[2023-07-18] MEDS: Melatonin 3 MG TAB 9 MG PO ×2 (01:35→23:25)
[2023-07-18] MEDS: diphenhydrAMINE 50 MG/ML VIAL IM (02:19)
[2023-07-18] MEDS: LORazepam 2 MG/ML VIAL IM (02:19)
[2023-07-18] MEDS: diazePAM 10 MG/2 ML SYR IM (04:10)
--- NOTE | 2023-07-18 07:09 | ED.PROG_ITS ---
Date of service: 07/18/23 Time of Service: 07:09 Medical Decision Making Patient here on EE status for manic-like behavior, currently resting in no distress with no acute complaints. Pending second CERT at this time Quality:SDOH Health Related Social Needs: No Data to Display Sign Out Sign Out Data: Sign Out Comment: Please follow-up with [facility] human services following their evaluation. Consider repeating salicylate level versus observing for signs of toxicity given therapeutic levels drawn initially. Last updated by Kilo Garcia MD at 07/17/23 23:28 Sign Out Comment: Patient medically stable throughout the night, however she had notable anxiety requiring multiple doses of medication. Salicylate levels returned within normal limits. Pending second certification, currently here voluntarily with initial EE completed Last updated by Nito Noel DO at 07/18/23 06:58 Discharge Plan Discharge Details Chief Complaint: HeadInjury Clinical Impression: Amanda, Psychiatric disorder Primary Care Provider: Norman Davidson ED Provider: Sukh Flores Home Meds and New Rx's Prescriptions: No Action No Known Home Meds
--- NOTE | 2023-07-18 15:55 | W.EDPROG ---
Date of service: 07/18/23 Time of Service: 15:56 Medical Decision Making I received signout on this 42-year-old patient currently on involuntary hold having upheld the second certification. Patient became agitated overnight and voluntarily took intramuscular medications. She is pending a telepsych consult. Her salicylate level was rising last night so we will repeat this now and offer voluntary olanzapine. Will update documentation as clinically warranted and signed patient out to the oncoming overnight provider. 4:52 PM Downtrending salicylate level. Telepsych consult has been placed. 10:20 PM Patient feeling more agitated. Telepsych consult has not yet been completed but has been reportedly set up. Given patient received olanzapine earlier today x 2 will treat her restlessness with hydroxyzine and melatonin. No active behavioral issues on my shift. Quality:[facility] Health Related Social Needs: No Data to Display Sign Out Sign Out Data: Sign Out Comment: Please follow-up with [facility] human services following their evaluation. Consider repeating salicylate level versus observing for signs of toxicity given therapeutic levels drawn initially. Last updated by Kilo Garcia MD at 07/17/23 23:28 Sign Out Comment: Patient medically stable throughout the night, however she had notable anxiety requiring multiple doses of medication. Salicylate levels returned within normal limits. Pending second certification, currently here voluntarily with initial EE completed Last updated by Nito Noel DO at 07/18/23 06:58 Sign Out Comment: involuntary for manic behavior, no issues during shift Last updated by Sukh Flores MD at 07/18/23 14:44 Discharge Plan Discharge Details Chief Complaint: HeadInjury Clinical Impression: Amanda, Psychiatric disorder Primary Care Provider: Norman Davidson ED Provider: Kilo Garcia Home Meds and New Rx's Prescriptions: No Action No Known Home Meds
[2023-07-18] MEDS: OLANZapine 5 MG TAB 10 MG PO (16:23)
[2023-07-18 16:44] LABS: Salicylate 5.3 mg/dL (<2.8)
--- NOTE | 2023-07-18 17:56 | CMSP_ITS ---
Date of service: 07/18/23 Time of Service: 17:56 Care Management Safety Plan Status Status: Involuntary Reason for Wait Reason for Wait: Inpatient Admission Safety Plan Safety Plan: INVOLUNTARY FOR INPATIENT PSYCHIATRIC STABILIZATION.? Patient is appropriate in all interactions since arriving at [facility]; Pt has demonstrated appropriate coping and communication skills, has articulated his or her needs and concerns and is fully engaged during staff interactions. Safety plan has been established with patient, and care team, to adhere to patient goals, identify restrictions based on behavioral status, address nutrition, and determine allowed personal belongings, tools for hygiene and personal care. Determine level of activity including ambulation, level of supervision, visitors, and determine privileges based on behaviors and level of engagement by pt. SAFETY PLAN: 1. Will remain on suicide precautions, in paper clothes 2. Will remain in Zone B under direct supervision of one-on-one staff at all times provided by [employer]; ANAHI, SCALE TANK OPERATOR surveillance director. 3. May have paper cups, plates, finger foods as well as a cardboard spoon with which to eat meals. 4. Follow [facility] Management of the Admitted Behavioral Health Patient policy. 5. Shower available in Zone B without restriction. 6. Personal belongings-soft items permitted at RN discretion. 7. Visitors- s/o Ahmet may visit, at RN discretion. 8. Activities: soft cart items approved per RN discretion. 9.? Bathroom available in Zone B without restriction. 10. Phone: limited to [facility] cordless phone at RN discretion. Due to INVOLUNTARY status, patient is being held at [facility] by the Department of Mental Health ([facility]) until 2nd certification by [facility] Psychiatrist can be performed (within 24 hours). Staff will provide de-escalation support (CPI) as needed. If patient wishes to leave [facility], staff will contact [facility] Crisis Screener ([phone]) and Blood Bank Attendant ([phone]) as soon as possible. In the event of elopement, notify [place] [employer] ([phone]). Patient is currently involuntarily at [facility]. [facility] Frontline Piece Worker will continue seeking placement. Please contact the Blood Bank Attendant for any needed changes to Safety Plan. Safety plan has been provided to interdepartmental care team. Patient will be transported by [facility] at time of discharge.
--- NOTE | 2023-07-18 17:56 | PDOC.CMSAFE ---
Date of service: 07/18/23 Time of Service: 17:56 Care Management Safety Plan Status Status: Involuntary Reason for Wait Reason for Wait: Inpatient Admission Safety Plan Safety Plan: INVOLUNTARY FOR INPATIENT PSYCHIATRIC STABILIZATION.? Patient is appropriate in all interactions since arriving at [facility]; Pt has demonstrated appropriate coping and communication skills, has articulated his or her needs and concerns and is fully engaged during staff interactions. Safety plan has been established with patient, and care team, to adhere to patient goals, identify restrictions based on behavioral status, address nutrition, and determine allowed personal belongings, tools for hygiene and personal care. Determine level of activity including ambulation, level of supervision, visitors, and determine privileges based on behaviors and level of engagement by pt. SAFETY PLAN: 1. Will remain on suicide precautions, in paper clothes 2. Will remain in Zone B under direct supervision of one-on-one staff at all times provided by [employer]; ANAHI, CAMPAIGN ASSOCIATE nitroglycerin nitrator operator batch. 3. May have paper cups, plates, finger foods as well as a cardboard spoon with which to eat meals. 4. Follow [facility] Management of the Admitted Behavioral Health Patient policy. 5. Shower available in Zone B without restriction. 6. Personal belongings-soft items permitted at RN discretion. 7. Visitors- s/o Ahmet may visit, at RN discretion. 8. Activities: soft cart items approved per RN discretion. 9.? Bathroom available in Zone B without restriction. 10. Phone: limited to [facility] cordless phone at RN discretion. Due to INVOLUNTARY status, patient is being held at [facility] by the Department of Mental Health ([facility]) until 2nd certification by [facility] Psychiatrist can be performed (within 24 hours). Staff will provide de-escalation support (CPI) as needed. If patient wishes to leave [facility], staff will contact [facility] Crisis Screener ([phone]) and [employer] ([phone]) as soon as possible. In the event of elopement, notify [place] [employer] ([phone]). Patient is currently involuntarily at [facility]. [facility] Frontline Corporate Travel Manager will continue seeking placement. Please contact the [employer] for any needed changes to Safety Plan. Safety plan has been provided to interdepartmental care team. Patient will be transported by [facility] at time of discharge.
--- NOTE | 2023-07-18 17:57 | CMPROGNOTE_ITS ---
Date of service: 07/18/23 Time of Service: 17:57 Care Management Progress Note Progress Note Text Progress Note Text: CM huddled with staff today regarding Kaylee's plan of care. Per staff, Kaylee is feeling better today, although she reports that her body hurts all over. She is looking forward to the provider's evaluation. She met with Bertha [facility], who completed her evaluation. She reported that she is doing better today because her brain doesn't hurt. Bertha stated that Kaylee's signficant other, Ahmet, is supportive and should be a positive influence if he visits, but that if it becomes problematic, that visits can be restricted. Kaylee had a second certification meeting with a psychiatrist from [facility] today, who upheld her involuntary hold. She has been declined by [facility], and no other facilities have beds available at this time. CM will continue to follow.
[2023-07-18] MEDS: hydrOXYzine HCL 25 MG TAB PO (23:25)
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
[2023-07-19] MEDS: OLANZapine 5 MG TAB PO ×3 (04:54→18:54)
[2023-07-19] MEDS: LORazepam 1 MG TAB PO ×2 (04:55→15:46)
[2023-07-19 09:11] VITALS: BP 112/70; PULSE 70; RESP 18; TEMP 36.4; O2SAT 99
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
--- NOTE | 2023-07-19 14:31 | NUR.NOTE ---
Nursing Note: pt with increased restlessness, including crying more loudly and for longer periods, barking and howling out the window, and entering an empty room thinking it was hers. Easily redirectable to own room, and was willing to sign consent for transfer however asked if she should sign with her real name, and was unsure of the day, month, or year.
--- NOTE | 2023-07-19 16:01 | ED.PROG_ITS ---
Date of service: 07/19/23 Time of Service: 16:01 Medical Decision Making Patient was signed out to me pending mental health evaluation and placement. Patient stable throughout the day. [facility] accepted the patient for transfer. Discussed the case with Dr. Cross, she agrees with the assessment an d plan. I have extensively reviewed the treatment plan with the patient. I have addressed all patient concerns at this time. I have also discussed the plan with the admitting physician and they agree with the current assessment and plan and have agreed to assume responsibility for the patient. All parties demonstrate verbal understanding and agreement with our assessment and plan at this time. Th e documentation in this chart was dictated using Pumodo dictation software. Please excuse any dictation errors. Quality:SDOH Health Related Social Needs: No Data to Display Sign Out Sign Out Data: Sign Out Comment: Please follow-up with [facility] human services following their evaluation. Consider repeating salicylate level versus observing for signs of toxicity given therapeutic levels drawn initially. Last updated by Kilo Garcia MD at 07/17/23 23:28 Sign Out Comment: Patient medically stable throughout the night, however she had notable anxiety requiring multiple doses of medication. Salicylate levels returned within normal limits. Pending second certification, currently here voluntarily with initial EE completed Last updated by Nito Noel DO at 07/18/23 06:58 Sign Out Comment: involuntary for manic behavior, no issues during shift Last updated by Sukh Flores MD at 07/18/23 14:44 Sign Out Comment: Second certification upheld on EE. Medically cleared. Pending psychiatric consultation for med reconciliation. Has received involuntary olanzapine. On no routine outpatient medications. Last updated by Kilo Garcia MD at 07/18/23 22:24 Sign Out Comment: 42y F presenting with maniac behavior. EEd, 2nd cert upheld. Medically cleared. Telepsych unable to to speak with patient 2/t technology issues. Did recommend zyprexa 5mg PO BID and ativan 1mg PO qhr prn which have been ordered, as well as starting lithium 300mg BID. [place] not ordered until formal consult/note is in. No behavioral events overnight. Last updated by Mandy Rees MD at 07/19/23 06:32 Discharge Plan Disposition Patient Disposition: Psychiatric Hospital/Unit Specific Psychiatric Facility: [facility] Discharge Details Chief Complaint: HeadInjury Clinical Impression: Amanda, Psychiatric disorder Primary Care Provider: Norman Davidson ED Provider: Nito Noel Home Meds and New Rx's Prescriptions: No Action No Known Home Meds
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
--- NOTE | 2023-07-19 17:08 | CMPROGNOTE_ITS ---
Date of service: 07/19/23 Time of Service: 17:08 Care Management Progress Note Progress Note Text Progress Note Text: CM huddled with staff regarding Kaylee's plan of care. Per staff, she has been agitated this morning, attempting to get into lockers where she believes her belongings are. Per Inga GILLES, she has been accepted for admission at [facility]. [facility] has arranged transport via [facility]. CM will continue to follow.
[2023-07-19] MEDS: Acetaminophen 500 MG TAB (17:20)
[2023-07-19 18:55] VITALS: BP 112/70; PULSE 70; RESP 18; TEMP 36.4; O2SAT 99
== END 2023-07-19 18:55 ==
PROVIDERS: Emergency Medicine; Emergency Provider Student in an Organized Health Care Education/Training Program; PCP Internal Medicine
DX: S09.90XA Unspecified injury of head, initial encounter (principal); F30.9 Manic episode, unspecified; R45.1 Restlessness and agitation; F41.9 Anxiety disorder, unspecified; R44.0 Auditory hallucinations; R44.1 Visual hallucinations; F17.210 Nicotine dependence, cigarettes, uncomplicated; V43.52XA Car driver injured in collision with other type car in traffic accident, initial encounter
CPT/HCPCS: 00123; 36415; 80048; 80307; 81025; 96372; 99285; 70450; 80320; 80329; 81003; 81015; 84443; 84703; 85025; J1200; J2060; J3360

== ENCOUNTER 2023-10-26 15:42 | Outpatient (REF) | payer MEDICAID, SELFPAY ==
--- OUTSIDE RECORDS SUMMARY | 2023-10-26 15:44 | XMS_ITS | Encounter Summary ---
Author Organization [facility] Address [address] [place] [address] Care Team Providers Care Cover Creaser Name Role Phone Unknown, Provider Primary Care Provider [phone] Encounter Details Date Type Department Care Team (Late st Contact Info) Description 02/18/2021 Lab Requisition [facility] Pathology & Laboratory Medicine - [facility] [address] [place] [address] Outr Resulting Lab, Provider Social History Tobacco Use Types Packs/Day Years Used Date Smoking Tobacco: Never Assessed Sex and Gender Information Value Date Recorded Sex Assigned at Not on file Gender Identity Not on file Sexual Orientation Not on file documented as of this encounter Plan of Treatment Not on file documented as of this encounter Procedures Procedure Name Priority Date/Time Associated Diagnosis Comments ZZCOVID-19 TEST [facility] PCR Today 02/17/2021 16:30 EST COVID-19 TESTING Routine 02/17/2021 16:3 0 EST documented in this encounter Results * COVID-19 TEST [facility] PCR (02/17/2021 16:30 EST) Swab 02/17/2021 16:3 0 EST 02/18/2021 16:30 EST Provider Outr Resulting Lab MICROBIOLOGY - GENERAL ORDERABLES [facility] [address] [place] [address] * COVID-19 TESTING (02/17/2021 16:30 EST) COVID-19 rt-PCR Result Negative Negative 02/18/2021 20:53 EST [facility] Comment: This test has not been FDA cleared or approved. This test has been authorized by FDA under an EUA for use by authorized laboratories. This test has been authorized only for detection of nucleic acid from 2019-nCoV, not for any other viruses or pathogens. This test is only authorized for the duration of the declaration that circumstances exist justifying the authorization of emergency use of in vitro diagnostic tests for detection and/or diagnosis of 2019-nCoV under section 564(b)(1) of Act, 21 U.S.C ?? 360bbb-3(b) (1), unless the authorization is terminated or revoked sooner. Negative results do not preclude 2019-nCoV infection and should not be used as the sole basis for treatment or other patient management decisions. Negative results must be combined with clinical observations, patient history, and epidemiological information. Performed on the Myrioher Fusion instrument Performing Lab [place] [facility] 02/18/2021 20:53 EST [facility] Swab 02/17/2021 16:3 0 EST 02/18/2021 16:30 EST Provider Outr Resulting Lab MICROBIOLOGY - GENERAL ORDERABLES [facility] [address] [place] [address] documented in this encounter Visit Diagnoses Not on filedocumented in this encounter Care Teams Cover Creaser Relationship Specialty Start Date End Date Unknown, Provider, PCP - General 07/25/10 documented as of this encounter
--- OUTSIDE RECORDS SUMMARY | 2023-10-26 15:44 | XMS_ITS | Encounter Summary ---
Author Organization [facility] Address [address] [place] [address] Care Team Providers Care After School Teacher Name Role Phone Unknown, Provider Primary Care Provider [phone] Encounter Details Date Type Department Care Team (Late st Contact Info) Description 07/02/2023 Lab Requisition [facility] Pathology & Laboratory Medicine - [facility] [address] [place] [address] Lucero Flores, FRUIT VENDOR [address] [place] [address] Acute vaginitis Social History Tobacco Use Types Packs/Day Years Used Date Smoking Tobacco: Never Assessed Sex and Gender Information Value Date Recorded Sex Assigned at Not on file Gender Identity Not on file Sexual Orientation Not on file documented as of this encounter Plan of Treatment Not on file documented as of this encounter Procedures Procedure Name Priority Date/Time Associated Diagnosis Comments PAP TEST Today 06/30/2023 11:45 EDT Acute vaginitis HPV DNA DETECTION WITH GENOTYPING, PCR Today 06/30/2023 11:45 EDT Acute vaginitis documented in this encounter Results * HUMAN PAPILLOMAVIRUS (HPV) DETECTION-HIGH RISK TYPES (06/30/2023 11:45 EDT) HPV other High Risk types, PCR Negative Negative 07/08/2023 18:20 EDT [facility] Comment:No E6 or E7 mRNA is detected from HPV types 16,18,31,33,35,39,45,51,52,56,58,59,66, and 68 by building maintenance repairer mediated amplification. Pap Test CERVIX UTERI STRUCTURE / Unknown 06/30/2023 11:45 EDT 07/07/2023 9:45 EDT Lucero Flores ANASTASIA MICROBIOLOGY - GE NERAL ORDERABLES [facility] [address] [place] [id number] * PAP TEST (06/30/2023 11:45 EDT) Specimens A. Cervix and/or Endocervix , ThinPrep Imaging System with Manual Evaluation 07/08/2023 18:20 [facility] Specimen Adequacy Satisfactory for Evaluation - transformation zone component present 07/08/2023 18:20 [facility] General Categorization Negative for intraepithelial lesion or malignancy 07/08/2023 18:20 [facility] Descriptive Diagnosis Reactive cellular changes associated with inflammation present (includes repair). Shift in jamel present suggestive of bacterial vaginosis. 07/08/2023 18:20 [facility] Attestation By the signature below, the attending physician certifies that they have personally conducted a gross and/or microscopic examination of the described specimens and rendered or confirmed the above diagnosis. 07/08/2023 18:20 [facility] at 1820 Clinical History SEE BELOW 07/08/19 24 18:20 [facility] HPV The result for the Human Papillomavirus (HPV) Detection-High Risk Types is Negative. No E6 or E7 mRNA is detected from HPV types 16,18,31,33,35,39 ,45,51,52,56,58,5 9,66, and 68 by building maintenance repairer mediated amplification.Jaymie ting was performed on specimen [id number] and was resulted on 07/08/2023 1820 EDT by ADRIANNA, LAB INSTRUMENT RESULTS IN 07/08/2023 18:20 [facility] Performing Lab [facility] 07/08/2023 18:20 [facility] Scanned Images 07/08/2023 18:20 EDT [facility] Pap Test CERVIX UTERI STRUCTURE / Unknown 06/30/2023 11:45 EDT 07/02/2023 11:47 EDT [place] A Sandra FRUIT VENDOR PATHOLOGY ORDERAB LES Performing Organization Address City/State/[facility] Co de Phone Number [facility] [address] [place] [address] documented in this encounter Visit Diagnoses Diagnosis Acute vaginitis Vaginitis and vulvovaginitis, unspecified documented in this encounter Care Teams After School Teacher Relationship Specialty Start Date End Date Unknown, Provider, PCP - General 07/25/10 documented as of this encounter
--- OUTSIDE RECORDS SUMMARY | 2023-10-26 15:44 | XMS_ITS | Encounter Summary ---
Author Organization [facility] Address [address] [place] [address] Care Team Providers Care Vb Developer Name Role Phone Unavailable Primary Care Provider Unavailanne e Encounter Details Date Type Department Care Team (Late st Contact Info) Description 06/22/2001 Results Only [facility] [address] [place] [address] Estela Tobias, [facility] [address] [place] [address] [place] [address] Social History Tobacco Use Types Packs/Day Years Used Date Smoking Tobacco: Never Assessed Sex and Gender Information Value Date Recorded Sex Assigned at Not on file Gender Identity Not on file Sexual Orientation Not on file documented as of this encounter Plan of Treatment Not on file documented as of this encounter Procedures Procedure Name Priority Date/Time Associated Diagnosis Comments CYTOPATHOLOGY Routine 06/22/2001 0:00 EST documented in this encounter Results * CYTOPATHOLOGY (06/22/2001 0:00 EST) Pathology Report: CYTOPATHOLOGY REPORT Reports generated via electronic interface contain original data; however they are lacking the format of the original report. Caution should be taken when reading/interpreti ng unformatted reports. Name: ? AMBER NAPIER ? Accession #: ? [id number] : ? 1980 (Age: 20) ??F ?Collect Date: ? 06/22/2001 Location: ? [facility] ? Receive Date: ? 06/24/2001 Provider: ?ESTELA TOBIAS CONSTRUCTION REPRESENTATIVE Copy to: ? Specimen/Source: ?ThinPrep Pap Test, Cervix/Endocervix Last Menstrual Period: ? 06/09/01 Hormonal/Contracep tive Status: ? Oral contraceptives Previous Gynecologic Pathology: ? Benign cellular changes: 06/11/00 ? SPECIMEN ADEQUACY ? Satisfactory for Evaluation - transformation zone component present GENERAL CATEGORIZATION ? Negative for Intraepithelial Lesion or Malignancy INTERPRETATION ? Trichomonas vaginalis present. ? Document reviewed and electronically signed by: ? ALEX Leigh(ASCP) ? Report Date: ??06/29/2001 10:13 End of Report DARYA ABRAMS 06/22/2001 06/24/2001 Estela Tobias CONSTRUCTION REPRESENTATIVE PATHOLOGY ORDERABLES [facility] [address] [place] [address] documented in this encounter Visit Diagnoses Not on filedocumented in this encounter
--- OUTSIDE RECORDS SUMMARY | 2023-10-26 15:44 | XMS_ITS | Clinical Summary ---
Author Organization [facility] Address [address] [place] [address] Care Team Providers Care Production Helper Name Role Phone Unknown, Provider Primary Care Provider Social History Tobacco Use Types Packs/Day Years Used Date Smoking Tobacco: Never Assessed Sex and Gender Information Value Date Recorded Sex Assigned at Not on file Gender Identity Not on file Sexual Orientation Not on file Plan of Treatment Health Maintenance Due Date Last Done Comments Hepatitis C Screen 1980 Hepatitis B Vaccine (1 of - 19+ 3-dose series) 07/22 COVID-19 Vaccine (2022- season) 2022 Care Teams Production Helper Relationship Specialty Start Date End Date Unknown, Provider, PCP - General 07/25/10
--- OUTSIDE RECORDS SUMMARY | 2023-10-26 15:44 | XMS_ITS | Referral Summary ---
Author Organization [facility] Address [address] [place] [address] Care Team Providers Care Boat Canvas Maker Installer Name Role Phone Unknown, Provider Primary Care Provider [phone] Social History Tobacco Use Types Packs/Day Years Used Date Smoking Tobacco: Never Assessed Sex and Gender Information Value Date Recorded Sex Assigned at Not on file Gender Identity Not on file Sexual Orientation Not on file Plan of Treatment Not on file Care Teams Boat Canvas Maker Installer Relationship Specialty Start Date End Date Unknown, Provider, PCP - General 07/25/10
--- OUTSIDE RECORDS SUMMARY | 2023-10-26 15:44 | XMS_ITS | Encounter Summary ---
Author Organization [facility] Address [address] [place] [address] Care Team Providers Care Unemployment Benefits Claims Taker Name Role Phone Unavailable Primary Care Provider Unavailabl e Encounter Details Date Type Department Care Team (Late st Contact Info) Description 05/24/2006 Results Only [facility] [place] [facility] [address] [place] [address] Tashi Gay MD [address] [place] [address] [address] [place] [address] Social History Tobacco Use Types Packs/Day Years Used Date Smoking Tobacco: Never Assessed Sex and Gender Information Value Date Recorded Sex Assigned at Not on file Gender Identity Not on file Sexual Orientation Not on file documented as of this encounter Plan of Treatment Not on file documented as of this encounter Procedures Procedure Name Priority Date/Time Associated Diagnosis Comments CYTOPATHOLOGY Routine 05/24/2006 0:00 EST documented in this encounter Results * CYTOPATHOLOGY (05/24/2006 0:00 EST) Pathology Report: CYTOPATHOLOGY REPORT Reports generated via electronic interface contain original data; however they are lacking the format of the original report. Caution should be taken when reading/interpreti ng unformatted reports. Name: ? AMBER NAPIER ? Accession #: ? [id number] : ? 1980 (Age: 25) ??F ?Collect Date: ? 05/24/2006 Location: ? [facility] ? Receive Date: ? 05/26/2006 Provider: ?TASHI GAY MD Copy to: ? Specimen/Source: ?ThinPrep Pap Test, Cervix/Endocervix, processed on [employer] ThinPrep Imaging System, with manual evaluation Last Menstrual Period: ? 03/09/06 Menstrual/Pregnanc y Status: ? Other: ? HPVA - HPV testing requested if ASC-US on the current ThinPrep Pap test. ? SPECIMEN ADEQUACY ? Satisfactory for Evaluation - transformation zone component present GENERAL CATEGORIZATION ? Negative for Intraepithelial Lesion or Malignancy INTERPRETATION ? Reactive cellular changes associated with inflammation present (includes repair). ? Document reviewed and electronically signed by: ? Maylin Diaz MD ? Report Date: ??05/28/2006 17:19 End of Report DARYA ABRAMS 05/24/2006 05/26/2006 Tashi Gay MD PATHOLOGY ORDERABLES Performing Organization Address City/State/[facility] Co de Phone Number DARYA ABRAMS [address] [place] [address] documented in this encounter Visit Diagnoses Not on filedocumented in this encounter
--- OUTSIDE RECORDS SUMMARY | 2023-10-26 15:44 | XMS_ITS | Encounter Summary ---
Author Organization [facility] Address [address] [place] [address] Care Team Providers Care Logistics Team Leader Name Role Phone Unavailable Primary Care Provider Unavailabl e Encounter Details Date Type Department Care Team (Late st Contact Info) Description 06/11/2000 Results Only [facility] [place] conversion [address] [place] [address] Jalil Mcrae MD [address] [place] [address] Social History Tobacco Use Types Packs/Day Years Used Date Smoking Tobacco: Never Assessed Sex and Gender Information Value Date Recorded Sex Assigned at Not on file Gender Identity Not on file Sexual Orientation Not on file documented as of this encounter Plan of Treatment Not on file documented as of this encounter Procedures Procedure Name Priority Date/Time Associated Diagnosis Comments CYTOPATHOLOGY Routine 06/11/2000 0:00 EST documented in this encounter Results * CYTOPATHOLOGY (06/11/2000 0:00 EST) Pathology Report: CYTOPATHOLOGY REPORT Reports generated via electronic interface contain original data; however they are lacking the format of the original report. Caution should be taken when reading/interpreti ng unformatted reports. Name: ? AMBER NAPIER ? Accession #: ? [id number] : ? 1980 (Age: 19) ??F ?Collect Date: ? 06/11/2000 Location: ? [facility] ? Receive Date: ? 06/15/2000 Provider: ?JALIL MCRAE MD Copy to: ? Specimen/Source: ?ThinPrep Pap Test, Cervix/Endocervix Last Menstrual Period: ? 05/19/00 Menstrual/Pregnanc y Status: ? Post ? SPECIMEN ADEQUACY ? Satisfactory for evaluation. GENERAL CATEGORIZATION ? Benign Cellular Changes DESCRIPTIVE DIAGNOSIS ? Trichomonas vaginalis present. ? Document reviewed and electronically signed by: ? ALEX Leon(ASCP)(IAC) ? Report Date: ??06/15/2000 15:23 End of Report DARYA ABRAMS 06/11/2000 06/15/2000 Jalil Mcrae MD PATHOLOGY ORDERABLES [facility] [address] [place] [address] documented in this encounter Visit Diagnoses Not on filedocumented in this encounter
--- OUTSIDE RECORDS SUMMARY | 2023-10-26 15:44 | XMS_ITS | Encounter Summary ---
Author Organization [facility] Address [address] [place] [address] Care Team Providers Care Skirt Maker Name Role Phone Unavailable Primary Care Provider Unavailabl e Encounter Details Date Type Department Care Team (Late st Contact Info) Description 12/31/2003 Results Only [facility] [place] conversion [address] [place] [address] Adonis Boyd MD [address] [facility] [address] [place] [address] [place] [phone] Social History Tobacco Use Types Packs/Day Years Used Date Smoking Tobacco: Never Assessed Sex and Gender Information Value Date Recorded Sex Assigned at Not on file Gender Identity Not on file Sexual Orientation Not on file documented as of this encounter Plan of Treatment Not on file documented as of this encounter Procedures Procedure Name Priority Date/Time Associated Diagnosis Comments CYTOPATHOLOGY Routine 12/31/2003 0:00 EDT documented in this encounter Results * CYTOPATHOLOGY (12/31/2003 0:00 EDT) Pathology Report: CYTOPATHOLOGY REPORT Reports generated via electronic interface contain original data; however they are lacking the format of the original report. Caution should be taken when reading/interpreti ng unformatted reports. Name: ? KAILA AMBER ? Accession #: ? [id number] : ? 1980 (Age: 23) ??F ?Collect Date: ? 12/31/2003 Location: ? [facility] ? Receive Date: ? 01/01/2004 Provider: ?ADONIS BOYD MD Copy to: ? Specimen/Source: ?ThinPrep Pap Test, Cervix/Endocervix Last Menstrual Period: ? Menstrual/Pregnanc y Status: ? Post ? SPECIMEN ADEQUACY ? Unsatisfactory for Evaluation - acellular sample submitted GENERAL CATEGORIZATION ? Specimen processed and examined, but unsatisfactory for evaluation of epithelial abnormality. Recommend repeat Pap test or further follow up, as clinically indicated. ? Document reviewed and electronically signed by: ? ALEX Flores(ASCP) ? Report Date: ??01/07/2004 09:10 End of Report DARYA ABRAMS 12/31/2003 01/01/2004 Adonis Boyd MD PATHOLOGY ORDERABLES DARYA ABRAMS [address] [place] [address] documented in this encounter Visit Diagnoses Not on filedocumented in this encounter
--- OUTSIDE RECORDS SUMMARY | 2023-10-26 15:44 | XMS_ITS | Encounter Summary ---
Author Organization [facility] Address [address] [place] [address] Care Team Providers Care Client Support Manager Name Role Phone Unavailable Primary Care Provider Unavailabl e Encounter Details Date Type Department Care Team (Late st Contact Info) Description 01/13/2007 Results Only [facility] [place] conversion [address] [place] [address] Tashi Gay MD [address] [place] [address] [address] [place] [address] Social History Tobacco Use Types [...] Priority Date/Time Associated Diagnosis Comments CYTOPATHOLOGY Routine 01/13/2007 0:00 EDT documented in this encounter Results * CYTOPATHOLOGY (01/13/2007 0:00 EDT) Pathology Report: CYTOPATHOLOGY REPORT Reports generated via electronic interface contain original data; however they are lacking the format of the original report. Caution should be taken when reading/interpreti ng unformatted reports. Name: ? KAILA AMBER ? Accession #: ? [id number] : ? 1980 (Age: 26) ??F ?Collect Date: ? 01/13/2007 Location: ? [facility] ? Receive Date: ? 01/17/2007 Provider: ?TASHI GAY MD Copy to: ? Specimen/Source: ?ThinPrep Pap Test, Cervix/Endocervix, processed on [employer] ThinPrep Imaging System, with manual evaluation Last Menstrual Period: ? 03/09/06 Menstrual/Pregnanc y Status: ? Post Other: ? HPVA - HPV testing requested if ASC-US on the current ThinPrep Pap test. ? SPECIMEN ADEQUACY ? Satisfactory for Evaluation - transformation zone component present GENERAL CATEGORIZATION ? Negative for Intraepithelial Lesion or Malignancy INTERPRETATION ? Shift in jamel present suggestive of bacterial vaginosis. ? Document reviewed and electronically signed by: ? Lakesha Breaux, ALEX(ASCP)(IAC) ? Report Date: ??01/24/2007 15:52 End of Report DARYA ABRAMS 01/13/2007 01/17/2007 Tashi Gay MD PATHOLOGY ORDERABLES Performing Organization Address City/State/[facility] Co de Phone Number DARYA ABRAMS [address] [place] [address] documented in this encounter Visit Diagnoses Not on filedocumented in this encounter
--- OUTSIDE RECORDS SUMMARY | 2023-10-26 15:44 | XMS_ITS | Encounter Summary ---
Author Organization [facility] Address [address] [place] [address] Care Team Providers Care Outpatient Clerk Name Role Phone Unknown, Provider Primary Care Provider Encounter Details Date Type Department Care Team (Latest Contact Info) Description 08/29/2014 10:30 EDT - 08/29/2014 23:59 EDT Hospital Encounter [address] [address] Unknown, Provider, Discharge Disposition: Home or Self Care Social History Tobacco Use Types Packs/Day Years Used Date Smoking Tobacco: Never Assessed Sex and Gender Information Value Date Recorded Sex Assigned at Not on file Gender Identity Not on file Sexual Orientation Not on file documented as of this encounter Discharge Disposition Disposition Code Departure Means Destination Home or Self [place] documented in this encounter Plan of Treatment Not on file documented as of this encounter Visit Diagnoses Not on filedocumented in this encounter Care Teams Outpatient Clerk Relationship Specialty Start Date End Date Unknown, Provider, PCP - General 07/25/10 documented as of this encounter
--- OUTSIDE RECORDS SUMMARY | 2023-10-26 15:44 | XMS_ITS | Encounter Summary ---
Author Organization [facility] Address [address] [place] [address] Care Team Providers Care Computer Network Specialist Name Role Phone Unavailable Primary Care Provider Unavailabl e Encounter Details Date Type Department Care Team (Late st Contact Info) Description 04/25/2003 Results Only [facility] [place] [facility] [address] [place] [address] Laney Davis, [place], [place] [id number] Social History Tobacco Use Types Packs/Day Years Used Date Smoking Tobacco: Never Assessed Sex and Gender Information Value Date Recorded Sex Assigned at Not on file Gender Identity Not on file Sexual Orientation Not on file documented as of this encounter Plan of Treatment Not on file documented as of this encounter Procedures Procedure Name Priority Date/Time Associated Diagnosis Comments CYTOPATHOLOGY Routine 04/25/2003 0:00 EST documented in this encounter Results * CYTOPATHOLOGY (04/25/2003 0:00 EST) Pathology Report: CYTOPATHOLOGY REPORT Reports generated via electronic interface contain original data; however they are lacking the format of the original report. Caution should be taken when reading/interpreti ng unformatted reports. Name: ? AMBER NAPIER ? Accession #: ? [id number] : ? 1980 (Age: 22) ??F ?Collect Date: ? 04/25/2003 Location: ? [facility] ? Receive Date: ? 04/26/2003 Provider: ?LANEY DAVIS CNM Copy to: ? Specimen/Source: ?ThinPrep Pap Test, Cervix/Endocervix Last Menstrual Period: ? 02/16/03 Menstrual/Pregnanc y Status: ? Previous Gynecologic Pathology: ? Benign cellular changes: 06/11/00 Other: ? Additional clinical information: ??06/22/01 net ? SPECIMEN ADEQUACY ? Satisfactory for Evaluation - transformation zone component present GENERAL CATEGORIZATION ? Negative for Intraepithelial Lesion or Malignancy INTERPRETATION ? Reactive cellular changes associated with inflammation present (includes repair). Shift in jamel present suggestive of bacterial vaginosis. ? Document reviewed and electronically signed by: ? ALEAH MORTON MD ? Report Date: ??05/03/2003 15:12 End of Report DARYA ABRAMS 04/25/2003 04/26/2003 Laney Davis CNM PATHOLOGY ORDERABLES Performing Organization Address City/State/[facility] Co de Phone Number DARYA ABRAMS [address] [place] [address] documented in this encounter Visit Diagnoses Not on filedocumented in this encounter
--- OUTSIDE RECORDS SUMMARY | 2023-10-26 15:44 | XMS_ITS | Encounter Summary ---
Author Organization [facility] Address [address] [place] [address] Care Team Providers Care Agronomy Advisor Name Role Phone Unknown, Provider Primary Care Provider [phone] Encounter Details Date Type Department Care Team (Late st Contact Info) Description 08/29/2014 Results Only [facility] [phone] Bora King MD [address] [place] [phone] Social History Tobacco Use Types Packs/Day Years Used Date Smoking Tobacco: Never Assessed Sex and Gender Information Value Date Recorded Sex Assigned at Not on file Gender Identity Not on file Sexual Orientation Not on file documented as of this encounter Plan of Treatment Not on file documented as of this encounter Procedures Procedure Name Priority Date/Time Associated Diagnosis Comments SURGICAL PATHOLOGY Routine 08/29/2014 8:56 EDT documented in this encounter Results * SURGICAL PATHOLOGY (08/29/2014 8:56 EDT) Pathology Report: SURGICAL PATHOLOGY REPORT Reports generated via electronic interface contain original data; however they are lacking the format of the original report. Caution should be taken when reading/interpret ing unformatted reports. Name: ? AMBER NAPIER ? Accession #: ? [id number] ? : ? 1980 (Age: 34) ??F ? Collect Date: ? 08/29/2014 ? Location: ? [facility] ? Receive Date: ? 08/30/2014 ? Provider: BORA KING MD Copy to: ROSELINE RAHMAN MD ? Final Pathologic Diagnosis: GALLBLADDER, CHOLECYSTECTOMY: - ??Chronic cholecystitis. - ??Cholelithiasis. Document reviewed and electronically signed by: EMMY ALLISON MD Report ??Date: 09/02/2014 08:57 By the signature above, the attending physician certifies that he/she has personally conducted a gross and/or microscopic examination of the described specimens and rendered or confirmed the above diagnosis. Specimen(s) Received: Gallbladder Clinical History: Cholecystitis Gross Description: ? Received in formalin labelled with proper patient identification (initials B, M) and gallbladder is a previously partially opened gallbladder (6.5 x 3.3 x 2.1 cm) with an attached segment of cystic duct (0.5 cm in length x 0.2 cm in diameter). ? The serosa is pink-white and smooth. The mucosa is ennis-brown, granular, and focally ragged and the wall is 0.2 cm in thickness. The cystic duct lumen is patent. The cystic duct margin is inked blue. Multiple fragmented yellow-brown choleliths are present, ranging from 0.1 cm to 2.0 cm in greatest dimension. ? Two instruments sales representative sections and the inked en face cystic duct margin are submitted in 1. Kenia Lara 08/30/2014 10:34 AM End of Report [facility] 08/29/2014 8:56 EDT 08/30/2014 8:56 EDT Bora King MD PATHOLOGY ORDERABLES [facility] [address] [place] [address] documented in this encounter Visit Diagnoses Not on filedocumented in this encounter Care Teams Agronomy Advisor Relationship Specialty Start Date End Date Unknown, Provider, PCP - General 07/25/10 documented as of this encounter
--- OUTSIDE RECORDS SUMMARY | 2023-10-26 15:44 | XMS_ITS | Encounter Summary ---
Author Organization [facility] Address [address] [place] [address] Care Team Providers Care Trial Judge Name Role Phone Unavailable Primary Care Provider Mindy e Encounter Details Date Type Department Care Team (Late st Contact Info) Description 07/23/2004 Results Only [facility] [place] conversion [address] [place] [address] Estela Tobias, [facility] [address] [place] [place] [address] [place] [phone] Social History Tobacco Use Types [...] Priority Date/Time Associated Diagnosis Comments CYTOPATHOLOGY Routine 07/23/2004 0:00 EDT documented in this encounter Results * CYTOPATHOLOGY (07/23/2004 0:00 EDT) Pathology Report: CYTOPATHOLOGY REPORT Reports generated via electronic interface contain original data; however they are lacking the format of the original report. Caution should be taken when reading/interpreti ng unformatted reports. Name: ? AMBER NAPIER ? Accession #: ? [id number] : ? 1980 (Age: 24) ??F ?Collect Date: ? 07/23/2004 Location: ? [facility] ? Receive Date: ? 07/25/2004 Provider: ?ESTELA TOBIAS CALL CIRCUIT WORKER Copy to: ? Specimen/Source: ?ThinPrep Pap Test, Cervix/Endocervix Last Menstrual Period: ? 07/10/04 Previous Gynecologic Pathology: ? Benign cellular changes: 06/11/00 Yes: 12/31/03 unsatisfactory Other: ? HPVA - HPV testing requested if ASC-US on the current ThinPrep Pap test. Additional clinical information: 06/04 and 04/08 Neg paps ? SPECIMEN ADEQUACY ? Satisfactory for Evaluation - transformation zone component present GENERAL CATEGORIZATION ? Negative for Intraepithelial Lesion or Malignancy ? Document reviewed and electronically signed by: ? ALEX Flores(ASCP) ? Report Date: ??07/31/2004 13:40 End of Report DARYA ABRAMS 07/23/2004 07/25/2004 Estela Tobias CALL CIRCUIT WORKER PATHOLOGY ORDERABLES DARYA ABRAMS [address] [place] [address] documented in this encounter Visit Diagnoses Not on filedocumented in this encounter
--- OUTSIDE RECORDS SUMMARY | 2023-10-26 15:44 | XMS_ITS | Encounter Summary ---
Author Organization [facility] Address [address] [place] [address] Care Team Providers Care Academic Support Assistant Name Role Phone Unavailable Primary Care Provider Unavailabl e Encounter Details Date Type Department Care Team (Late st Contact Info) Description 06/06/2010 Results Only [facility] - [facility] ([facility] [address] [place] [address] Tashi Gay MD [address] [place] [address] [address] [place] [address] Social History Tobacco Use Types [...] Priority Date/Time Associated Diagnosis Comments CYTOPATHOLOGY Routine 06/06/2010 0:00 EST documented in this encounter Results * CYTOPATHOLOGY (06/06/2010 0:00 EST) Pathology Report: CYTOPATHOLOGY REPORT ? Reports generated via electronic interface contain original data; ? however they are lacking the format of the original report. ? Caution should be taken when reading/interpreti ng unformatted reports. ? Name: ? AMBER NAPIER ? Accession #: ? [id number] ? : ? 1980 (Age: 29) ??F ?Collect Date: ? 06/06/2010 ? Location: ? [facility] ? Receive Date: ? 06/09/2010 ? Provider: ?TASHI GAY MD ? Copy to: ? Specimen/Source: ?Pap Test, Cervix/Endocervix, ThinPrep Imaging System ? with manual evaluation ? Last Menstrual Period: ? 2/11 ? SPECIMEN ADEQUACY ? Satisfactory for Evaluation ? - transformation zone component present ? GENERAL CATEGORIZATION ? Negative for Intraepithelial Lesion or Malignancy ? INTERPRETATION ? Reactive cellular changes associated with inflammation present (includes ?? repair). ? Document reviewed and electronically signed by: ? CARLOS EDUARDO L CIOLINO MD ? Report Date: ??06/13/2010 20:07 ? End of Report ? DARYA ABRAMS 06/06/2010 06/09/2010 Tashi Gay MD PATHOLOGY ORDERABLES DARY[facility] ABRAMS [address] [place] [address] documented in this encounter Visit Diagnoses Not on filedocumented in this encounter
--- OUTSIDE RECORDS SUMMARY | 2023-10-26 15:44 | XMS_ITS | Encounter Summary ---
Author Organization [facility] Address [address] [place] [address] Care Team Providers Care Refuse Collector Supervisor Name Role Phone Unavailable Primary Care Provider Mindy e Encounter Details Date Type Department Care Team (Late st Contact Info) Description 10/29/1999 Results Only [facility] [place] conversion [address] [place] [address] Estela Tobias, [facility] [address] [place] [address] [place] [phone] Social History Tobacco Use Types [...] Priority Date/Time Associated Diagnosis Comments CYTOPATHOLOGY Routine 10/29/1999 0:00 EDT documented in this encounter Results * CYTOPATHOLOGY (10/29/1999 0:00 EDT) Pathology Report: CYTOPATHOLOGY REPORT Reports generated via electronic interface contain original data; however they are lacking the format of the original report. Caution should be taken when reading/interpreti ng unformatted reports. Name: ? AMBER NAPIER ? Accession #: ? [id number] : ? 1980 (Age: 19) ??F ?Collect Date: ? 10/29/1999 Location: ? [facility] ? Receive Date: ? 11/03/1999 Provider: ?ESTELA TOBIAS CHIP UNLOADER Copy to: ? Specimen/Source: ?ThinPrep Pap Test, Cervix/Endocervix Last Menstrual Period: ? 07/30/99 Menstrual/Pregnanc y Status: ? SPECIMEN ADEQUACY ? Satisfactory for evaluation. GENERAL CATEGORIZATION ? Within Normal Limits DESCRIPTIVE DIAGNOSIS ? Fungal organisms present morphologically consistent with Annika species. ? Document reviewed and electronically signed by: ? ALEX Copeland(ASCP) ? Report Date: ??11/05/1999 08:09 End of Report DARYA ABRAMS 10/29/1999 11/03/1999 Estela Tobias CHIP UNLOADER PATHOLOGY ORDERABLES DARYA ABRAMS [address] [place] [address] documented in this encounter Visit Diagnoses Not on filedocumented in this encounter
--- OUTSIDE RECORDS SUMMARY | 2023-10-26 15:44 | XMS_ITS | Encounter Summary ---
Author Organization [facility] Address [address] [place] [address] Care Team Providers Care Aerospace Products Sales Engineer Name Role Phone Unknown, Provider Primary Care Provider Encounter Details Date Type Department Care Team (Late st Contact Info) Description 03/17/2021 Lab Requisition [facility] Pathology & Laboratory Medicine - [facility] [address] [place] [address] [address] [place] [address] Encounter for other general examination Social History Tobacco Use Types Packs/Day Years Used Date Smoking Tobacco: Never Assessed Sex and Gender Information Value Date Recorded Sex Assigned at Not on file Gender Identity Not on file Sexual Orientation Not on file documented as of this encounter Plan of Treatment Not on file documented as of this encounter Procedures Procedure Name Priority Date/Time Associated Diagnosis Comments PAP TEST Today 03/14/2021 3:15 EST Encounter for other general examination HPV DNA DETECTION WITH GENOTYPING, PCR Today 03/14/2021 3:15 EST Encounter for other general examination documented in this encounter Results * (ABNORMAL) HUMAN PAPILLOMAVIRUS (HPV) DETECTION-HIGH RISK TYPES (03/14/2021 3:15 EST) HPV other High Risk types, PCR Positive( A) Negative 03/25/2021 10:11 EST [facility] Comment:E6 OR E7 mRNA from o ne or more types of HPV types 16,18,31,33,35,39,45,51,52,56,58,59,66, and 68 is detected by company driver mediated amplification. High and intermediate risk HPV types are associated with most squamous intraepithelial lesions and cervical cancers. Papanicolaou smear specimen (specimen) CERVIX UTERI STRUCTURE / Unknown 03/14/2021 3:15 EST 03/20/2021 13:57 EST Estela Tobias EMERGENCY ROOM CLINICIAN MICROBIOLOGY - GENER AL ORDERABLES [facility] [address] [place] [address] * PAP TEST (03/14/2021 3:15 EST) Specimens A. Cervix and/or Endocervix , ThinPrep Imaging System with Manual Evaluation 03/25/2021 10:11 [facility] Specimen Adequacy Satisfactory for Evaluation - transformation zone component present 03/25/2021 10:11 [facility] General Categorization Negative for intraepithelial lesion or malignancy 03/25/2021 10:11 [facility] Attestation . 03/25/2021 10:11 [facility] at 1011 Clinical History SEE BELOW 03/25/20 10:11 [facility] HPV The result for the Human Papillomavirus (HPV) Detection-High Risk Types is Positive . E6 OR E7 mRNA from one or more types of HPV types 16,18,31,33,35,39 ,45,51,52,56,58,5 9,66, and 68 is detected by company driver mediated amplification. High and intermediate risk HPV types are associated with most squamous intraepithelial lesions and cervical cancers. Testing was performed on specimen [id number] and was resulted on 03/25/2021 0756 EST by ADRIANNA, LAB INSTRUMENT RESULTS IN 03/25/2021 10:11 [facility] Performing Lab [facility] 03/25/2021 10:11 [facility] Scanned Images 03/25/2021 10:11 [facility] Papanicolaou smear specimen (specimen) CERVIX UTERI STRUCTURE / Unknown 03/14/2021 3:15 EST 03/17/2021 13:13 EST Estela Tobias EMERGENCY ROOM CLINICIAN PATHOLOGY ORDERABLES [facility] [address] [place] [address] documented in this encounter Visit Diagnoses Diagnosis Encounter for other general examination documented in this encounter Care Teams Aerospace Products Sales Engineer Relationship Specialty Start Date End Date Unknown, Provider, PCP - General 07/25/10 documented as of this encounter
--- OUTSIDE RECORDS SUMMARY | 2023-10-26 15:44 | XMS_ITS | Encounter Summary ---
Author Organization [facility] Address [address] [place] [address] Care Team Providers Care Police Reserves Commander Name Role Phone Unknown, Provider Primary Care Provider [phone] Encounter Details Date Type Department Care Team (Late st Contact Info) Description 11/07/2019 Lab Requisition [facility] Pathology & Laboratory Medicine - [facility] [address] [place] [address] Outr Resulting Lab, Provider Social History Tobacco [...] Procedure Name Priority Date/Time Associated Diagnosis Comments DO NOT ORDER STANDALONE - BROAD COVID TEST Today 11/07/2019 10:36 EDT COVID-19 TESTING Routine 11/07/2019 10:3 6 EDT documented in this encounter Results * DO NOT ORDER STANDALONE - BROAD COVID TEST (11/07/2019 10:36 EDT) COVID-19 rt-PCR Result NEGATIVE Negative 11/08/2019 20:27 EDT [facility] Comment: 2019-novel Coronavirus (2019-nCoV) not detected by the qRT-PCR assay. Consider testing for other respiratory viruses or re-collecting for 2019-nCoV testing. Note: Optimum timing for peak viral levels during infections caused by 2019-nCoV have not been determined. Collection of multiple specimens from the same patient may be necessary to detect the virus. Limitations Positive results are indicative of active infection with SARS-CoV-2 but do not rule out bacterial infection or co-infection with other viruses. The agent detected may not be the definite cause of disease. In addition, detection of viral RNA may not indicate the presence of infectious virus or that SARS-CoV-2 is the causative agent for clinical symptoms. Negative results do not preclude SARS-CoV-2 infection and should not be used as the sole basis for patient management decisions. Negative results must be combined with clinical observations, patient history, and epidemiological information. False negative results may also occur if amplification inhibitors are present in the specimen or if inadequate numbers of organisms are present in the specimen. Optimum specimen types and timing for peak viral levels during infections caused by SARS-CoV-2 have not been fully determined. Collection of multiple specimens (types and time points) from the same patient may be necessary to detect the virus. The test was validated for use with upper respiratory specimens obtained via nasopharyngeal or oropharyngeal swabs in VTM, UTM, M4, M5, M6, saline, and MTM media. The performance of this test has not been established for other specimens. Specimens collected using other FDA recommended Specimen Collection Materials listed in the FDA COVID-19 [employer] communication (June 29, 2019) are processed with the caveat that they were not all validated for use with this test and the result must be interpreted in this context. Furthermore, a false negative results may occur if a specimen is improperly collected, transported or handled. If the virus mutates in the RT-PCR target region, SARS-CoV-2 may not be detected or may be detected less predictably. Inhibitors or other types of interference may produce a false negative result. An interference study evaluating the effect of common cold medications was not performed. This test is not FDA-cleared but its performance characteristics were established by our CLIA-certified, CAP-accredited, high complexity laboratory in accordance with CLIA regulations, [employer] (CAP) guidelines (Jun 22, 2019), and FDA guidance (Jun 03, 2019). This test is only for use under the Food and Drug Administration's Emergency Use Authorization. Swab ENTIRE NASOPHARYNX / Unknown 11/07/2019 10:36 EDT 11/07/2019 15:32 EDT Provider Outr Resulting Lab MICROBIOLOGY - GENERAL ORDERABLES [facility] [place], [place] * COVID-19 TESTING (11/07/2019 10:36 EDT) COVID-19 rt-PCR Result NEGATIVE Negative 11/08/2019 23:43 EDT [facility] Comment: 2019-novel Coronavirus (2019-nCoV) not detected by the qRT-PCR assay. Consider testing for other respiratory viruses or re-collecting for 2019-nCoV testing. Note: Optimum timing for peak viral levels during infections caused by 2019-nCoV have not been determined. Collection of multiple specimens from the same patient may be necessary to detect the virus. Limitations Positive results are indicative of active infection with SARS-CoV-2 but do not rule out bacterial infection or co-infection with other viruses. The agent detected may not be the definite cause of disease. In addition, detection of viral RNA may not indicate the presence of infectious virus or that SARS-CoV-2 is the causative agent for clinical symptoms. Negative results do not preclude SARS-CoV-2 infection and should not be used as the sole basis for patient management decisions. Negative results must be combined with clinical observations, patient history, and epidemiological information. False negative results may also occur if amplification inhibitors are present in the specimen or if inadequate numbers of organisms are present in the specimen. Optimum specimen types and timing for peak viral levels during infections caused by SARS-CoV-2 have not been fully determined. Collection of multiple specimens (types and time points) from the same patient may be necessary to detect the virus. The test was validated for use with upper respiratory specimens obtained via nasopharyngeal or oropharyngeal swabs in VTM, UTM, M4, M5, M6, saline, and MTM media. The performance of this test has not been established for other specimens. Specimens collected using other FDA recommended Specimen Collection Materials listed in the FDA COVID-19 [employer] communication (June 29, 2019) are processed with the caveat that they were not all validated for use with this test and the result must be interpreted in this context. Furthermore, a false negative results may occur if a specimen is improperly collected, transported or handled. If the virus mutates in the RT-PCR target region, SARS-CoV-2 may not be detected or may be detected less predictably. Inhibitors or other types of interference may produce a false negative result. An interference study evaluating the effect of common cold medications was not performed. This test is not FDA-cleared but its performance characteristics were established by our CLIA-certified, CAP-accredited, high complexity laboratory in accordance with CLIA regulations, [employer] (CAP) guidelines (Jun 22, 2019), and FDA guidance (Jun 03, 2019). This test is only for use under the Food and Drug Administration's Emergency Use Authorization. Performing Lab [facility] 11/08/2019 23:43 EDT [facility] Swab 11/07/2019 10:3 6 EDT 11/07/2019 15:32 EDT Provider Outr Resulting Lab MICROBIOLOGY - GENERAL ORDERABLES [facility] [address] [place] [address] [facility] [place] documented in this encounter Visit Diagnoses Not on filedocumented in this encounter Care Teams Police Reserves Commander Relationship Specialty Start Date End Date Unknown, Provider, PCP - General 07/25/10 documented as of this encounter
--- OUTSIDE RECORDS SUMMARY | 2023-10-26 15:44 | XMS_ITS | Encounter Summary ---
Author Organization [facility] Address [address] [place] [address] Care Team Providers Care Trim And Burr Operator Name Role Phone Unknown, Provider Primary Care Provider [phone] Encounter Details Date Type Department Care Team (Late st Contact Info) Description 06/30/2023 Lab Requisition [facility] Pathology & Laboratory Medicine - [address] [address] Outr Resulting Lab, Provider Social History Tobacco [...] Procedure Name Priority Date/Time Associated Diagnosis Comments CHLAMYDIA/N. GONORRHOEAE AMPLIFIED NUCLEIC ACID, THINPREP Routine 06/30/2023 11:45 EDT documented in this encounter Results * CHLAMYDIA/N. GONORRHOEAE AMPLIFIED RNA, THINPREP (06/30/2023 11:45 EDT) Neisseria gonorrhoeae Result Negative Negative 07/01/2023 17:00 EDT [facility] Chlamydia trachomatis Result Negative Negative 07/01/2023 17:00 EDT [facility] Pap Test CERVIX UTERI STRUCTURE / Unknown 06/30/2023 11:45 EDT 07/01/2023 9:54 EDT Provider Outr Resulting Lab MICROBIOLOGY - GENERAL ORDERABLES [facility] [address] [place] [id number] documented in this encounter Visit Diagnoses Not on filedocumented in this encounter Care Teams Trim And Burr Operator Relationship Specialty Start Date End Date Unknown, Provider, PCP - General 07/25/10 documented as of this encounter
--- OUTSIDE RECORDS SUMMARY | 2023-10-26 15:44 | XMS_ITS | Encounter Summary ---
Author Organization [facility] Address [address] [place] [address] Care Team Providers Care Woods Rider Name Role Phone Unavailable Primary Care Provider Unavailabl e Encounter Details Date Type Department Care Team (Late st Contact Info) Description 07/23/2010 Results Only [facility] [phone] Lucina Nguyen MD [address] [place] [address] Social History Tobacco Use Types Packs/Day Years Used Date Smoking Tobacco: Never Assessed Sex and Gender Information Value Date Recorded Sex Assigned at Not on file Gender Identity Not on file Sexual Orientation Not on file documented as of this encounter Plan of Treatment Not on file documented as of this encounter Procedures Procedure Name Priority Date/Time Associated Diagnosis Comments SURGICAL PATHOLOGY Routine 07/23/2010 0:00 EDT documented in this encounter Results * SURGICAL PATHOLOGY (07/23/2010 0:00 EDT) Pathology Report: SURGICAL PATHOLOGY REPORT ? Reports generated via electronic interface contain original data; ? however they are lacking the format of the original report. ? Caution should be taken when reading/interpreti ng unformatted reports. ? Name: ? AMBER NAPIER ? Accession #: ? [id number] ? : ? 1980 (Age: 30) ??F ? Collect Date: ? 07/23/2010 ? Location: ? [facility] ? Receive Date: ? 07/23/2010 ? Provider: LUCINA S GEOFF MD ? Copy to: ANGELA LONTINE PA ? Final Pathologic Diagnosis: ? Uterus, supracervical hysterectomy (uterine weight: 90 grams): ? 1. ?Endometrium: Proliferative endometrium. ? 2. ?? Myometrium: No specific pathologic features. ? 3. ?? Serosa: Focal fibrinous adhesions, hemorrhage and cautery artifact. See ? comment. ?- No definitive endometriosis is identified. ? 4. ?? Small portion of fallopian tube (at cornu) with no specific pathologic features. ? Comment: ? Plant Engineering Supervisor sections of this case have been reviewed at the ? intradepartmental consultation conference. ??(Dr. Baird)/ljn ? Document reviewed and electronically signed by: ? TOÑA BAIRD MD ? Report ??Date: 07/25/2010 14:41 ? By the signature above, the attending physician certifies that he/she has ? personally conducted a gross and/or microscopic examination of the described ? specimens and rendered or confirmed the above diagnosis. ? Specimen(s) Received: ? Uterus ? Clinical History: ? S/P tubal ligation; menorrhagia, dysmenorrhea, left lower quad pain, endometriosis ??for supracervical hysterectomy ? Gross Description: ? Received in formalin labelled Ralph, Magon and uterus is the product of a supracervical morcellated hysterectomy which weighs 90 grams and measures ?? 9.5 x 0.5 x 3.0 cm in aggregate. ??The serosa is ennis-pink, smooth and glistening. The endometrium is ennis-brown, averaging 0.2 cm in thickness. ??The myometrium is ennis-pink and focally trabecular measuring up 1.2 cm in thickness. ??There is one 0.2 cm in greatest dimension villanueva-white whorled fibrous nodule present. ??No ? adnexa nor cervix are present. ??Plant Engineering Supervisor sections are submitted as ? follows: ? BLOCK LOYOLA ? A1, A2 ?Endometrium ? A3-A5 ?Myometrium ? A6 ?Fibrous myometrium ? A7 ?Serosa with cautery ? (M. Gleason)/mms ? End of Report ? DARYA ABRAMS 07/23/2010 07/23/2010 18: 23 EDT Lucina Nguyen MD PATHOLOGY ORDERABLES DARYA ABRAMS [address] [place] [address] documented in this encounter Visit Diagnoses Not on filedocumented in this encounter
--- OUTSIDE RECORDS SUMMARY | 2023-10-26 15:44 | XMS_ITS | Encounter Summary ---
Author Organization [facility] Address [address] [place] [id number] Care Team Providers Care Hydroelectric Station Operator Name Role Phone Unknown, Provider Primary Care Provider [phone] Encounter Details Date Type Department Care Team (Late st Contact Info) Description 03/14/2021 Lab Requisition [facility] Pathology & Laboratory Medicine - [address] [address] Outr Resulting Lab, Provider Social History Tobacco [...] Associated Diagnosis Comments CHLAMYDIA/N. GONORRHOEAE AMPLIFIED NUCLEIC ACID Routine 03/14/2021 15:15 EST documented in this encounter Results * CHLAMYDIA/N. GONORRHOEAE AMPLIFIED RNA (03/14/2021 15:15 EST) Neisseria gonorrhoeae Result Negative Negative 03/17/2021 15:22 EST [facility] Chlamydia trachomatis Result Negative Negative 03/17/2021 15:22 EST [facility] Swab ENTIRE ENDOCERVIX / Unknown 03/14/2021 15:15 EST 03/14/2021 22:10 EST Provider Outr Resulting Lab MICROBIOLOGY - GENERAL ORDERABLES [facility] [address] [place] [address] documented in this encounter Visit Diagnoses Not on filedocumented in this encounter Care Teams Hydroelectric Station Operator Relationship Specialty Start Date End Date Unknown, Provider, PCP - General 07/25/10 documented as of this encounter
[2023-10-26 20:08] LABS: HCT 44.8 % (36.0-46.0); MCH 31.3 pg (27.0-33.0); MCHC 33.5 % (32.0-36.0); MCV 94 fL (80-95); Platelet Count 286 10^3/uL (130-400); RBC 4.79 10^6/uL (3.93-5.22); RDW 12.1 % (11.7-14.6); RDW-SD 42.6 fL; WBC 7.23 10^3/uL (4.4-10.8)
[2023-10-26 20:34] LABS: ALT 29 U/L (14-59); AST 16 U/L (15-37); Albumin 4.1 g/dL (3.4-5.0); Alkaline Phosphatase 58 U/L (46-116); Anion Gap 11.5 mmol/L (3-11); BUN 15 mg/dL (7-18); Bilirubin, Total 0.89 mg/dL (0.2-1.0); CO2 24.5 mmol/L (21.0-32.0); Calcium 9.3 mg/dL (8.5-10.1); Calculated LDL 108 mg/dL (<100); Chloride 107 mmol/L (98-107); Cholesterol 190 mg/dL (<200); Estimated GFR 72.58 (mL/min/1.73m2); Glucose 130 mg/dL (74-106); HDL Cholesterol 60 mg/dL (40-60); Potassium 4.1 mmol/L (3.5-5.1); Sodium 143 mmol/L (136-145); TSH 1.72 uIU/Ml (0.36-3.74); Total Protein 6.9 g/dL (6.4-8.2); Triglyceride 111 mg/dL (<150)
[2023-10-27 19:16] LABS: Hepatitis C Ab w Rflx HCV PCR Negative (Negative)
[2023-10-27 19:20] LABS: HIV-1/2 Ag & Ab Screen Negative (Negative)
== END 2023-10-26 15:43 | disposition home or self-care (01) ==
LOC: NCHCN 15:42
PROVIDERS: PCP Nurse Practitioner Family; Visit Provider Nurse Practitioner Family
DX: Z13.29 Encounter for screening for other suspected endocrine disorder (principal); Z13.220 Encounter for screening for lipoid disorders; Z13.228 Encounter for screening for other metabolic disorders; Z11.4 Encounter for screening for human immunodeficiency virus [HIV]; Z11.59 Encounter for screening for other viral diseases; Z13.0 Encounter for screening for diseases of the blood and blood-forming organs and certain disorders involving the immune mechanism; Z00.00 Encounter for general adult medical examination without abnormal findings
CPT/HCPCS: 80053; 80061; 85027; 86803; 87389; 84443